=== PATIENT | male | born 1950 | race Caucasian/White ===

== ENCOUNTER 2021-12-21 09:29 | Outpatient (CLI) | payer MEDICARE, SELFPAY ==
[2021-12-21 09:59] LABS: Basophils Absolute Auto 0.1 K/mm3 (0.0-0.1); Basophils Percent Auto 1.5 % (0.2-1.2); Eosinophils Absolute Auto 0.4 K/mm3 (0-0.3); Eosinophils Percent Auto 5.9 % (0-4.4); Hematocrit 44.7 % (42.0-52.0); Hemoglobin 14.8 g/dL (14.0-18.0); Immature Granulocyte Absolute 0.02 K/mm3 (0.00-0.031); Immature Granulocyte Percent A 0.3 % (0-0.5); Lymphocytes Absolute Auto 1.26 K/mm3 (0.9-3.2); Lymphocytes Percent Auto 18.6 % (18.3-44.2); Mean Corpuscular HGB Conc 33.1 g/dl (32-36); Mean Corpuscular Volume 93.7 fl (80-100); Mean Platelet Volume 8.7 fl (7.4-10.4); Monocytes Absolute Auto 0.7 K/mm3 (0.1-0.6); Monocytes Percent Auto 9.7 % (2.6-8.5); Neutrophils Absolute Auto 4.3 K/mm3 (1.3-6.7); Platelet Count Result 284 k/mm3 (150-375); Red Blood Count 4.77 M/mm3 (4.6-6.20); Red Cell Distribution Width 13.2 % (11.5-14.5); White Blood Count 6.8 K/mm3 (4.5-10.0)
[2021-12-21 11:05] LABS: Iron 107 ug/dL (49-181)
[2021-12-21 11:27] LABS: Vitamin D 25 Hydroxy 84.8 ng/mL
[2021-12-21 13:31] LABS: Transferrin 220 mg/dL (206-381)
[2021-12-24 21:45] LABS: Methylmalonic Acid 146 nmol/L (87-318)
== END 2021-12-21 09:30 | disposition home or self-care (01) ==
PROVIDERS: PCP Nurse Practitioner Family
DX: D50.9 Iron deficiency anemia, unspecified (principal)
CPT/HCPCS: 36415; 82306; 82607; 82728; 83540; 83921; 84443; 84466; 85025

== ENCOUNTER 2022-11-12 09:38 | Outpatient (CLI) | payer MEDICARE, SELFPAY ==
[2022-11-12 10:40] LABS: Basophils Absolute Auto 0.1 K/mm3 (0.0-0.1); Basophils Percent Auto 2.5 % (0.2-1.2); Eosinophils Absolute Auto 0.4 K/mm3 (0-0.3); Eosinophils Percent Auto 8.1 % (0-4.4); Hematocrit 41.5 % (42.0-52.0); Hemoglobin 13.5 g/dL (14.0-18.0); Immature Granulocyte Absolute 0.02 K/mm3 (0.00-0.031); Immature Granulocyte Percent A 0.4 % (0-0.5); Lymphocytes Absolute Auto 1.24 K/mm3 (0.9-3.2); Lymphocytes Percent Auto 23.5 % (18.3-44.2); Mean Corpuscular HGB Conc 32.5 g/dl (32-36); Mean Corpuscular Hemoglobin 30.8 pg (26-34); Mean Corpuscular Volume 94.5 fl (80-100); Mean Platelet Volume 9.2 fl (7.4-10.4); Monocytes Absolute Auto 0.5 K/mm3 (0.1-0.6); Monocytes Percent Auto 10.2 % (2.6-8.5); Neutrophils Absolute Auto 2.9 K/mm3 (1.3-6.7); Neutrophils Percent Auto 55.3 % (45.5-73.1); Platelet Count Result 256 k/mm3 (150-375); Red Blood Count 4.39 M/mm3 (4.6-6.20); Red Cell Distribution Width 14.1 % (11.5-14.5); White Blood Count 5.3 K/mm3 (4.5-10.0)
[2022-11-12 10:50] LABS: Anion Gap 6 mmol/L (8-16); Blood Urea Nitrogen 15 mg/dL (9-20); Carbon Dioxide 27 mmol/L (22-30); Chloride 107 mmol/L (98-107); Estimated Glomerular Filt Rate > 60; Glucose 98 mg/dL (65-110); Potassium 4.1 mmol/L (3.4-5.0); Sodium 140 mmol/L (137-145)
[2022-11-12 10:52] LABS: Prothrombin Time 13.8 Seconds (11.1-14.7)
[2022-11-12 10:53] LABS: Partial Thromboplastin Time 31.4 SECONDS (22.3-36.8)
== END 2022-11-12 09:39 | disposition home or self-care (01) ==
PROVIDERS: PCP Nurse Practitioner Family; Visit Provider Urology
DX: N32.89 Other specified disorders of bladder (principal); Z01.818 Encounter for other preprocedural examination
CPT/HCPCS: 36415; 80048; 85025; 85610; 85730

== ENCOUNTER 2022-11-18 03:07 | Day surgery (SDC) | payer MEDICARE, SELFPAY ==
--- NOTE | 2022-11-07 09:53 | PC.NURSE ---
Report to the Outpatient Waiting Room, entrance under the green pavilion located off [facility], at time _1000 on date __11/18/22 . Planned Procedure Time: _1200 . Time changes happen often and if your time is changed the preop area will call you the afternoon before. - You and your visitor will be asked to self-screen and do not enter if you have any COVID symptoms. - A mask is optional within the hospital at this time. Patients may have clear liquids (water, carbonated beverages, clear teas, apple juice) until 3 hours prior to surgery with a maximum of 20 ounces. - No food from midnight until time of surgery - Infants may have breast milk until 4 hours before surgery, infant formula 6 hours prior to surgery. - Children will be allowed to drink immediately following surgery. If applicable, please bring a bottle or sippy cup to assist with drinking. Juice, water, soda, and popsicles are readily available. For infants on formula, please bring formula the day of surgery. Pacifiers are allowed. Take the following medications with a SIP of water the morning of surgery: ____NONE DO NOT STOP ANY OF YOUR OTHER PRESCRIPTION MEDICATIONS PRIOR TO SURGERY ?EXCEPT THE FOLLOWING Medications to discontinue per physician __ALL VITAMINS/SUPPLEMENTS 3 DAYS PRE OP .LAST DOSE11/14/22, PT TO CALL DR CHACON REGARDING ASPIRIN . PT STATES HOLD_ELIQUIS 4 DAYS PRE OP AND BRIDGE WITH LOVENOX PER DR BRANCH/INES Please no make-up, nail surinamese, hairspray, perfume, deodorant, or body powder the day of surgery. No jewelry (including any body piercings) or valuables the day of surgery, leave them at home. Please take a shower or bath the night before, or the morning of, surgery with an antibacterial soap. Wear comfortable, loose fitting clothing. Children are encouraged to wear pajamas. - Jewelry must be removed prior to entering the operating room. Rings and piercings that are not removed may be cut off. - The hospital will not accept responsibility for valuables. - Please leave all valuables, including medications, at home the day of surgery. If you are going home after surgery, a licensed class c truck driver must drive you home. - NO public transportation without another adult if you receive anesthesia. - We recommend that an adult stay with you for 24 hours following discharge. - We also recommend that you do not drive, make important decision, drink alcoholic beverages, or take any drugs that were not prescribed by your health care provider for at least 24 hours after your discharge time. Follow any additional instructions given to you from your surgeon. If you or anyone in your household have experienced Covid symptoms in the past week, please notify your surgeon or the nurse liaison at the phone number below for possible testing. Telephone instructions given to ___PATIENT and asked if any additional questions and then verbalized understanding. Patient advised to call surgeon office or pre surgery nurse liaison [phone] if any additional questions.
[2022-11-07 10:16] VITALS: BMI 30.4
[2022-11-18] VITALS (9 sets, daily range): BP systolic 120–144; BP diastolic 76–90; PULSE 48–76; RESP 12–20; TEMP 36.7–36.8; O2SAT 98–100
--- NOTE | 2022-11-18 07:47 | WPDANESEPPF ---
Anes - Initial Pre Proc Eval Procedure: Operation Date: 11/18/22 10:00 Proposed Procedures p Trans Urethral Resection Bladder Tumor, Possible Right Ureteral Stent Placement - Albin Erickson MD Date/Time: 11/18/22 07:47 Surgeon: Albin Erickson MD Pre Op Diagnosis: gross hematuria, bladder mass Patient Data Age: 72 Gender: M Height: 1.73 m Weight: 90.75 kg Allergies Allergy/AdvReac Type Severity Reaction Status Date / Time atorvastatin AdvReac Joint Pain Verified 11/07/22 09:45 Home Medications Medication Instructions Recorded Confirmed Type apixaban 5 mg tablet (Eliquis) 5 mg PO BID 11/05/22 11/07/22 History multivitamin 1 tablet PO DAILY 11/05/22 11/07/22 History omega-3 360 pb-plu-pvg-fish oil 1 cap PO DAILY 11/05/22 11/07/22 History 1,200 mg capsule,delayed release trazodone 50 mg tablet 50 mg PO QHS PRN Insomnia 11/05/22 11/07/22 History albuterol sulfate 90 mcg/actuation 2 puff inhalation PRN PRN 11/07/22 11/07/22 History aerosol inhaler Shortness Of Breath aspirin 81 mg tablet,delayed 81 mg PO DAILY 11/07/22 11/07/22 History release (Adult Low Dose Aspirin) cetirizine 10 mg tablet 10 mg PO DAILY 11/07/22 11/07/22 History tamsulosin 0.4 mg capsule 0.4 mg PO DAILY 11/07/22 11/07/22 History Patient hx anesthesia problems: none Family hx anesthesia problems: none Results Review: All pre-operative results and documents have been reviewed as part of the pre-operative evaluation. [facility] Past Medical History Medical History (Updated 11/18/22 @ 07:50 by Mateus Benavides MD) Blood clots in biliary tract following procedure Obesity KWESI on CPAP Pulmonary embolism Family History Family History (Updated 11/05/22 @ 08:35 by Esme Berumen CMA) Father Heart disease Cerebrovascular accident Mother Heart disease Sibling Hypertension Grandparent Cancer Grandparent Cancer Diabetes mellitus Social History Social History (Updated 11/05/22 @ 08:36 by Esme Berumen CMA) Smoking packs per day: 1 Smoking cigarettes per day: 20.0 Years smoked: 20 Smoking pack-years: 20.00 Smoking status: Former smoker Tobacco type: cigarettes Smoking end date: 05/11/99 Alcohol intake: current Drinks per week: 2 Lack of Transportation: No Lack of Food: Never True Current Housing: I Have Housing Concerned About Future Housing: No Difficulty Paying Gas/Electric Bills: No Difficulty Paying for Meds: No Currently Unemployed: No Education: High School Diploma/GED Difficulty w/ Childcare or Family Care: No Living arrangements: with family Spiritual care concerns: No Anes - Eval Final PreProcedure Day of Procedure 11/18/22 07:47 Patient weight: obese Heart: regular rate and rhythm Lungs: clear to auscultation and normal air movement Airway: Mallampati scale class II Neurological: alert and oriented Last oral intake: >/= 8 hours ASA classification: III Emergent: no Anesthetic plan: proceed Anesthesia type and monitoring: general LMA Results Review: All pre-operative results and documents have been reviewed as part of the pre-operative evaluation. Informed Consent: The patient's anesthetic plan and its attendant risks and benefits were discussed with the patient/family/POA. Questions were solicited and answers provided to the satisfaction of the patient/family/POA.
[2022-11-18] MEDS: LACTATED RINGERS 1,000 ML 30 ML IV CONT ×2 (08:30→11:08)
--- NOTE | 2022-11-18 09:35 | WPDHPUPDATE1 ---
History and Physical Update Update Date/Time: 11/18/22 09:35 History and Physical has been reviewed, including an updated exam of the patient. There are NO changes in the patient's condition. Risks, benefits, and alternatives have been discussed and questions answered. Patient agrees to proceed with procedure. Proceed with transurethral resection of bladder tumor
--- NOTE | 2022-11-18 09:44 | WPDHPUPDATE1 ---
History and Physical Update Update Date/Time: 11/18/22 09:44 History and Physical has been reviewed, including an updated exam of the patient. There are NO changes in the patient's condition. Risks, benefits, and alternatives have been discussed and questions answered. Patient agrees to proceed with procedure. Proceed with turbt, possible right retrograde, right ureteral stent placement.
[2022-11-18] MEDS: ceFAZolin 2 GM/D5W 50 ML 2 GM/50 ML BAG IVPB (09:52)
--- NOTE | 2022-11-18 10:28 | W.PM.PROC2 ---
Procedure Note - Detailed Date of Procedure 11/18/22 Pre-op Diagnosis gross hematuria, bladder mass Post-op Diagnosis Same Procedure Performed Transurethral resection of bladder tumor medium size 3 cm Surgeon Albin Erickson MD Anesthesia General Description of Procedure Patient is taken to the operative suite correctly identified. Once anesthesia was obtained was placed in dorsal lithotomy position and prepped and draped usual sterile fashion. A 24 Australian scope was inserted the bladder. The tumors located just lateral to the right ureteral orifice. Measures approximately 3 cm. Using a 24 Australian resectoscope loop this was resected down to the base. The base was taken and sent as a separate specimen. Hemostasis was achieved using electrocautery. No other tumors were noted. Bladder tumor chips were then sent for pathologic review. 2% viscous lidocaine was inserted into the urethra. Eighteen Australian Mena was placed with 10 cc in the balloon. Patient is taken recovery stable condition. We discharged home with a Mena catheter and have it removed in 2 days. He will resume his anticoagulants this evening. This completes dictation. Please send a copy of op note to my office Estimated Blood Loss 10 Drains Yes Packing No Pathology Yes Complications No immediate complications Condition Stable Disposition PACU
== END 2022-11-18 12:50 | disposition home or self-care (01) ==
PROVIDERS: PCP Nurse Practitioner Family; Visit Provider Urology
PROC: 0TBB8ZZ Excision of Bladder, Via Natural or Artificial Opening Endoscopic (ICD-10-PCS; CPT 52235; principal; 2022-11-18 10:00)
DX: C67.8 Malignant neoplasm of overlapping sites of bladder (principal); G47.33 Obstructive sleep apnea (adult) (pediatric); Z86.711 Personal history of pulmonary embolism; Z86.718 Personal history of other venous thrombosis and embolism; E66.9 Obesity, unspecified; Z68.31 Body mass index [BMI] 31.0-31.9, adult; Z87.891 Personal history of nicotine dependence; Z79.01 Long term (current) use of anticoagulants; Z79.51 Long term (current) use of inhaled steroids; Z79.82 Long term (current) use of aspirin
CPT/HCPCS: 52235; 36415; 80048; 85025; 85610; 85730; 88305; J0690; J2001; J2250; J2704; J3010; J7120

== ENCOUNTER 2023-09-04 11:52 | Outpatient (CLI) | payer MEDICARE, SELFPAY ==
--- NOTE | 2023-09-04 14:02 | ECG_ITS ---
SEE SCANNED COPY FOR CONFIRMED REPORT MTDD
[2023-09-04 14:44] LABS: Basophils Absolute Auto 0.1 K/mm3 (0.0-0.1); Basophils Percent Auto 1.5 % (0.2-1.2); Eosinophils Absolute Auto 0.3 K/mm3 (0-0.3); Eosinophils Percent Auto 5.4 % (0-4.4); Immature Granulocyte Absolute 0.02 K/mm3 (0.00-0.031); Immature Granulocyte Percent A 0.3 % (0-0.5); Lymphocytes Absolute Auto 1.26 K/mm3 (0.9-3.2); Lymphocytes Percent Auto 20.6 % (18.3-44.2); Mean Corpuscular HGB Conc 33.3 g/dl (32-36); Mean Corpuscular Hemoglobin 31.4 pg (26-34); Mean Corpuscular Volume 94.3 fl (80-100); Mean Platelet Volume 9.1 fl (7.4-10.4); Monocytes Absolute Auto 0.7 K/mm3 (0.1-0.6); Monocytes Percent Auto 10.9 % (2.6-8.5); Neutrophils Absolute Auto 3.8 K/mm3 (1.3-6.7); Neutrophils Percent Auto 61.3 % (45.5-73.1); Platelet Count Result 248 k/mm3 (150-375); Red Blood Count 4.77 M/mm3 (4.6-6.20); Red Cell Distribution Width 12.7 % (11.5-14.5); White Blood Count 6.1 K/mm3 (4.5-10.0)
[2023-09-04 14:59] LABS: Anion Gap 4 mmol/L (4-12); Blood Urea Nitrogen 16 mg/dL (9-20); Calcium 9.4 mg/dL (8.4-10.2); Carbon Dioxide 29 mmol/L (22-30); Chloride 107 mmol/L (98-107); Estimated Glomerular Filt Rate > 60; Glucose 94 mg/dL (65-110); Potassium 3.8 mmol/L (3.4-5.0); Prothrombin Time 13.9 Seconds (11.1-14.7); Sodium 140 mmol/L (137-145)
[2023-09-04 15:00] LABS: Partial Thromboplastin Time 29.2 Seconds (22.3-36.8)
== END 2023-09-04 11:53 | disposition home or self-care (01) ==
PROVIDERS: PCP Family Medicine; Visit Provider Urology
DX: C67.9 Malignant neoplasm of bladder, unspecified (principal); E78.00 Pure hypercholesterolemia, unspecified; Z01.818 Encounter for other preprocedural examination
CPT/HCPCS: 36415; 80048; 85025; 85610; 85730; 87086; 93005

== ENCOUNTER 2023-09-08 00:37 | Day surgery (SDC) | payer MEDICARE, SELFPAY ==
[2023-09-04 11:22] VITALS: BMI 31.2
--- NOTE | 2023-09-04 11:51 | PC.NURSE ---
Report to the Outpatient Waiting Room, entrance under the green pavilion located off [facility], at time __7:00AM on date ___09/08/23____. Planned Procedure Time: __9:00AM . Time changes happen often and if your time is changed the preop area will call you the afternoon before. - You and your visitor will be asked to self-screen and do not enter if you have any COVID symptoms. - A mask is optional within the hospital at this time. Patients may have clear liquids (water, carbonated beverages, clear teas, apple juice) until 3 hours prior to surgery with a maximum of 20 ounces. - No food from midnight until time of surgery. Take the following medications with a SIP of water the morning of surgery: ____ALBUTEROL INHALER NEEDED DO NOT STOP ANY OF YOUR OTHER PRESCRIPTION MEDICATIONS PRIOR TO SURGERY ?EXCEPT THE FOLLOWING Medications to discontinue per physician ___HOLD ELIQUIS 3 DAYS PRE-OP PER DR CHACON- LAST DOSE 09/04/23. HOLD ASPIRIN AND VITAMINS/SUPPLEMENTS 7 DAYS PRE-OP PER DR CHACON-PATIENT JUST RECEIVED THIS INSTRUCTION ON 09/03/23. HE IS CURRENTLY HOLDING, LAST DOSE 09/03/23. OFFICE NOTIFIED. Please no make-up, nail slovenian, hairspray, perfume, deodorant, or body powder the day of surgery. No jewelry (including any body piercings) or valuables the day of surgery, leave them at home. Please take a shower or bath the night before, or the morning of, surgery with an antibacterial soap. Wear comfortable, loose fitting clothing. - Jewelry must be removed prior to entering the operating room. Rings and piercings that are not removed may be cut off. - The hospital will not accept responsibility for valuables. - Please leave all valuables, including medications, at home the day of surgery. If you are going home after surgery, a licensed driver's license examiner must drive you home. - NO public transportation without another adult if you receive anesthesia. - We recommend that an adult stay with you for 24 hours following discharge. - We also recommend that you do not drive, make important decision, drink alcoholic beverages, or take any drugs that were not prescribed by your health care provider for at least 24 hours after your discharge time. Follow any additional instructions given to you from your surgeon. If you or anyone in your household have experienced Covid symptoms in the past week, please notify your surgeon or the nurse liaison at the phone number below for possible testing. Telephone instructions given to ____PATIENT and asked if any additional questions and then verbalized understanding. Patient advised to call surgeon office or pre surgery nurse liaison [phone] if any additional questions.
[2023-09-08] VITALS (8 sets, daily range): BP systolic 92–124; BP diastolic 62–88; PULSE 44–60; RESP 16; TEMP 36.3–36.6; O2SAT 96–100
--- NOTE | 2023-09-08 07:04 | WPDHPUPDATE1 ---
History and Physical Update Update Date/Time: 09/08/23 07:04 History and Physical has been reviewed, including an updated exam of the patient. There are NO changes in the patient's condition. Risks, benefits, and alternatives have been discussed and questions answered. Patient agrees to proceed with procedure. Proceed with turbt
--- NOTE | 2023-09-08 08:19 | WPDANESEPPF ---
Anes - Initial Pre Proc Eval Procedure: Operation Date: 09/08/23 09:00 Proposed Procedures p Trans Urethral Resection Bladder Tumor - Albin Erickson MD Date/Time: 09/08/23 08:19 Surgeon: Albin Erickson MD Pre Op Diagnosis: Bladder Cancer Patient Data Age: 73 Gender: M Height: 1.75 m Weight: 96 kg Allergies Allergy/AdvReac Type Severity Reaction Status Date / Time atorvastatin AdvReac Joint Pain Verified 09/08/23 08:20 Home Medications Medication Instructions Recorded Confirmed Type apixaban 5 mg tablet (Eliquis) 5 mg PO BID 11/05/22 09/08/23 History multivitamin 1 tablet PO DAILY 11/05/22 09/08/23 History omega-3 360 pw-dms-mzs-fish oil 1 cap PO DAILY 11/05/22 09/08/23 History 1,200 mg capsule,delayed release trazodone 50 mg tablet 50 mg PO QHS PRN Insomnia 11/05/22 09/08/23 History albuterol sulfate 90 mcg/actuation 2 puff inhalation PRN PRN 11/07/22 09/08/23 History aerosol inhaler Shortness Of Breath aspirin 81 mg tablet,delayed 81 mg PO DAILY 11/07/22 09/08/23 History release (Adult Low Dose Aspirin) cetirizine 10 mg tablet 10 mg PO DAILY 11/07/22 09/08/23 History tamsulosin 0.4 mg capsule 0.4 mg PO DAILY 11/07/22 09/08/23 History rosuvastatin 5 mg tablet 5 mg PO DAILY 09/04/23 09/08/23 History Patient hx anesthesia problems: none Family hx anesthesia problems: none Results Review: All pre-operative results and documents have been reviewed as part of the pre-operative evaluation. [facility] Past Medical History Medical History (Updated 09/08/23 @ 08:21 by Aureliano Bonilla DO) Blood clots in biliary tract following procedure DVT (deep venous thrombosis) Hiatal hernia Hyperlipidemia Obesity KWESI on CPAP Pulmonary embolism 08/2022 Family History Family History (Updated 11/05/22 @ 08:35 by Esme Berumen CMA) Father Heart disease Cerebrovascular accident Mother Heart disease Sibling Hypertension Grandparent Cancer Grandparent Cancer Diabetes mellitus Social History Social History (Updated 11/05/22 @ 08:36 by Esme Berumen [facility]) Smoking packs per day: 1 Smoking cigarettes per day: 20.0 Years smoked: 25 Smoking pack-years: 25.00 Smoking status: Former smoker Tobacco type: cigarettes Smoking end date: 11/09/99 Alcohol intake: current Drinks per week: 12 Lack of Transportation: No Lack of Food: Never True Current Housing: I Have Housing Concerned About Future Housing: No Difficulty Paying Gas/Electric Bills: No Difficulty Paying for Meds: No Currently Unemployed: No Education: High School Diploma/GED Difficulty w/ Childcare or Family Care: No Living arrangements: with family Additional living arrangements comments: Spiritual care concerns: No Anes - Eval Final PreProcedure Day of Procedure 09/08/23 08:19 Patient weight: obese Heart: regular rate and rhythm Lungs: clear to auscultation Airway: Mallampati scale class II Neurological: alert and oriented Last oral intake: >/= 8 hours ASA classification: III Emergent: no Anesthetic plan: proceed Anesthesia type and monitoring: general LMA and standard monitoring Results Review: All pre-operative results and documents have been reviewed as part of the pre-operative evaluation. Informed Consent: The patient's anesthetic plan and its attendant risks and benefits were discussed with the patient/family/POA. Questions were solicited and answers provided to the satisfaction of the patient/family/POA.
[2023-09-08] MEDS: ceFAZolin 2 GM/D5W 50 ML 2 GM/50 ML BAG IVPB (08:32)
[2023-09-08] MEDS: LIDOCAINE HCL 2% GEL UROJET 10 ML PKG MUCOUS MEM (08:49)
--- NOTE | 2023-09-08 08:59 | W.PM.PROC2 ---
Procedure Note - Detailed Date of Procedure 09/08/23 Pre-op Diagnosis Bladder Cancer Post-op Diagnosis Same Procedure Performed Transurethral resection of medium bladder tumor 2 cm Surgeon Albin Erickson MD Anesthesia General Description of Procedure The patient was brought to the operative suite where he is prepped and draped in a routine sterile fashion while in the dorsal lithotomy position. This is done after the uneventful administration of systemic sedation. A 24F resectoscope sheath was placed in the bladder and the bladder is circumferentially inspected carefully. 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 This area is resected in its entirety with an attempt made to include detrusor muscle for pathological evaluation of invasion. The base and periphery of this resected side is cauterized with a loop electrode. The bladder is emptied and the resectoscope was removed. His prostate was oozing at the bladder neck from the median lobe. I also fulgurated this area. 2% viscous lidocaine was inserted into the urethra. The patient is taken to the recovery room having tolerated this procedure well. Estimated Blood Loss 0 Drains No Packing No Pathology Yes Complications No immediate complications Condition Stable Disposition PACU
[2023-09-08] MEDS: LACTATED RINGERS 1,000 ML 30 ML IV CONT (09:02)
== END 2023-09-08 10:26 | disposition home or self-care (01) ==
PROVIDERS: PCP Family Medicine; Visit Provider Urology
PROC: 0TBB8ZZ Excision of Bladder, Via Natural or Artificial Opening Endoscopic (ICD-10-PCS; CPT 52235; principal; 2023-09-08 09:00)
DX: C67.3 Malignant neoplasm of anterior wall of bladder (principal); E78.5 Hyperlipidemia, unspecified; G47.33 Obstructive sleep apnea (adult) (pediatric); Z86.718 Personal history of other venous thrombosis and embolism; Z86.711 Personal history of pulmonary embolism; E66.9 Obesity, unspecified; Z68.30 Body mass index [BMI] 30.0-30.9, adult; Z87.891 Personal history of nicotine dependence; Z79.51 Long term (current) use of inhaled steroids; Z79.82 Long term (current) use of aspirin; Z79.01 Long term (current) use of anticoagulants
CPT/HCPCS: 52235; 36415; 80048; 85025; 85610; 85730; 87086; 88305; 93005; J0690; J1100; J2405; J2704; J7120

== ENCOUNTER 2023-12-22 02:23 | Day surgery (SDC) | payer MEDICARE, SELFPAY ==
[2023-12-17 12:54] VITALS: BMI 30.2
--- NOTE | 2023-12-17 13:17 | PC.NURSE ---
Report to the Outpatient Waiting Room, entrance under the green pavilion located off [facility], at time __8:45AM on date __12/22/23 . Planned Procedure Time: ___10:45AM . Time changes happen often and if your time is changed the preop area will call you the afternoon before. - You and your visitor will be asked to self-screen and do not enter if you have any COVID symptoms. - A mask is optional within the hospital at this time. Patients may have clear liquids (water, carbonated beverages, clear teas, apple juice) until 3 hours prior to surgery with a maximum of 20 ounces. - No food from midnight until time of surgery. Take the following medications with a SIP of water the morning of surgery: ____ALBUTEROL INHALER NEEDED. TAKE HYDROCODONE OR TRAMADOL NEEDED FOR PAIN. DO NOT STOP ANY OF YOUR OTHER PRESCRIPTION MEDICATIONS PRIOR TO SURGERY ?EXCEPT THE FOLLOWING Medications to discontinue per physician ____HOLD ELIQUIS, ASPIRIN & VITAMINS/SUPPLEMENTS PER DR CHACON. LEFT MESSAGE W/ OFFICE TO CONFIRM. Please no make-up, nail bruneian, hairspray, perfume, deodorant, or body powder the day of surgery. No jewelry (including any body piercings) or valuables the day of surgery, leave them at home. Please take a shower or bath the night before, or the morning of, surgery with an antibacterial soap. Wear comfortable, loose fitting clothing. - Jewelry must be removed prior to entering the operating room. Rings and piercings that are not removed may be cut off. - The hospital will not accept responsibility for valuables. - Please leave all valuables, including medications, at home the day of surgery. If you are going home after surgery, a licensed flatbed driver must drive you home. - NO public transportation without another adult if you receive anesthesia. - We recommend that an adult stay with you for 24 hours following discharge. - We also recommend that you do not drive, make important decision, drink alcoholic beverages, or take any drugs that were not prescribed by your health care provider for at least 24 hours after your discharge time. Follow any additional instructions given to you from your surgeon. If you or anyone in your household have experienced Covid symptoms in the past week, please notify your surgeon or the nurse liaison at the phone number below for possible testing. Telephone instructions given to ___PATIENT and asked if any additional questions and then verbalized understanding. Patient advised to call surgeon office or pre surgery nurse liaison [phone] if any additional questions.
[2023-12-22] VITALS (11 sets, daily range): BP systolic 91–184; BP diastolic 47–103; PULSE 46–84; RESP 12–18; TEMP 36.1–36.7; O2SAT 96–100
[2023-12-22] MEDS: LACTATED RINGERS 1,000 ML 30 ML IV CONT (06:30)
--- NOTE | 2023-12-22 07:10 | WPDANESEPPF ---
Anes - Initial Pre Proc Eval Procedure: Operation Date: 12/22/23 07:30 Proposed Procedures p Cystoscopy, Bladder Biopsy with Fulguration - Albin Erickson MD Date/Time: 12/22/23 07:10 Surgeon: Albin Erickson MD Pre Op Diagnosis: bladder cancer Patient Data Age: 73 Gender: M Height: 1.75 m Weight: 93 kg Allergies Allergy/AdvReac Type Severity Reaction Status Date / Time atorvastatin AdvReac Joint Pain Verified 12/17/23 12:43 Home Medications Medication Instructions Recorded Confirmed Type apixaban 5 mg tablet (Eliquis) 5 mg PO BID 11/05/22 12/17/23 History multivitamin 1 tablet PO DAILY 11/05/22 12/17/23 History omega-3 360 du-nny-vhg-fish oil 1 cap PO DAILY 11/05/22 12/17/23 History 1,200 mg capsule,delayed release trazodone 50 mg tablet 50 mg PO QHS PRN Insomnia 11/05/22 12/17/23 History albuterol sulfate 90 mcg/actuation 2 puff inhalation PRN PRN 11/07/22 12/17/23 History aerosol inhaler Shortness Of Breath aspirin 81 mg tablet,delayed 81 mg PO DAILY 11/07/22 12/17/23 History release (Adult Low Dose Aspirin) cetirizine 10 mg tablet 10 mg PO DAILY 11/07/22 12/17/23 History tamsulosin 0.4 mg capsule 0.4 mg PO DAILY 11/07/22 12/17/23 History rosuvastatin 5 mg tablet 5 mg PO DAILY 09/04/23 12/17/23 History tramadol 50 mg tablet 50 mg PO Q6H PRN pain #20 tabs 09/08/23 12/17/23 Rx cyclobenzaprine 10 mg tablet 10 mg PO TID PRN Muscle Spasm 12/17/23 12/17/23 History hydrocodone 5 mg-acetaminophen 325 1 tablet PO Q4-6H PRN Pain 12/17/23 12/17/23 History mg tablet methylprednisolone 4 mg tablets in See Rx Instructions .Route .COMPLEX 12/17/23 12/17/23 History a dose pack Patient hx anesthesia problems: none Family hx anesthesia problems: none Results Review: All pre-operative results and documents have been reviewed as part of the pre-operative evaluation. [facility] Past Medical History Medical History Blood clots in biliary tract following procedure DVT (deep venous thrombosis) Hiatal hernia Hyperlipidemia Obesity KWESI on CPAP Pulmonary embolism 08/2022 Family History Family History Father Heart disease Cerebrovascular accident Mother Heart disease Sibling Hypertension Grandparent Cancer Grandparent Cancer Diabetes mellitus Social History Social History Smoking packs per day: 1 Smoking cigarettes per day: 20.0 Years smoked: 35 Smoking pack-years: 35.00 Smoking status: Former smoker Tobacco type: cigarettes Smoking end date: 11/09/99 Alcohol intake: current Drinks per week: 12 Lack of Transportation: No Lack of Food: Never True Current Housing: I Have Housing Concerned About Future Housing: No Difficulty Paying Gas/Electric Bills: No Difficulty Paying for Meds: No Currently Unemployed: No Education: High School Diploma/GED Difficulty w/ Childcare or Family Care: No Living arrangements: with family Additional living arrangements comments: Spiritual care concerns: No Anes - Eval Final PreProcedure Day of Procedure 12/22/23 07:10 Patient weight: overweight Heart: regular rate and rhythm Lungs: clear to auscultation Airway: Mallampati scale class II Neurological: alert and oriented Last oral intake: >/= 8 hours ASA classification: III Emergent: no Anesthetic plan: proceed Anesthesia type and monitoring: general GIVS and standard monitoring Results Review: All pre-operative results and documents have been reviewed as part of the pre-operative evaluation. Hx of DVT/PE, pt on eliquis, off for 3-4 days, KWESI, noncompliant w CPAP. Informed Consent: The patient's anesthetic plan and its attendant risks and benefits were discussed with the patient/family/POA. Questions were solicited and answers provided to the satisfaction
--- NOTE | 2023-12-22 07:29 | WPDHPUPDATE1 ---
History and Physical Update Update Date/Time: 12/22/23 07:29 History and Physical has been reviewed, including an updated exam of the patient. There are NO changes in the patient's condition. Risks, benefits, and alternatives have been discussed and questions answered. Patient agrees to proceed with procedure. Proceed with cysto, bladder biopsy with fulguration
[2023-12-22] MEDS: ceFAZolin 2 GM/D5W 50 ML 2 GM/50 ML BAG IVPB (07:37)
[2023-12-22] MEDS: LIDOCAINE HCL 2% GEL UROJET 10 ML PKG MUCOUS MEM (07:55)
--- NOTE | 2023-12-22 08:00 | W.PM.PROC2 ---
Procedure Note - Detailed Date of Procedure 12/22/23 Pre-op Diagnosis bladder cancer Post-op Diagnosis Same Procedure Performed Cystoscopy with bladder biopsy and fulguration Surgeon Albin Erickson MD Anesthesia General Description of Procedure Patient was taken the operative suite correctly identified. Once anesthesia was obtained was placed in dorsal lithotomy position and prepped and draped usual sterile fashion. Twenty-two Wallisian scope was inserted the bladder. There were no urethral strictures. Prostate was not overly obstructed. The bladder itself has some irregularity on the floor. There was also a small lesion measuring about 8-9 mm on the posterior wall. These were both biopsied using a cold cup biopsy. The base was fulgurated. There was good hemostasis. Bladder was drained. 2% viscous lidocaine was inserted into the urethra patient is taken recovery stable condition. He will follow up with a call in 1 week for results. This completes dictation. Please send a copy of op note to my office. Estimated Blood Loss 0 Drains No Packing No Pathology Yes Complications No immediate complications Condition Stable Disposition PACU
[2023-12-22] MEDS: oxyCODONE HCL (*CRX) 5 MG TAB IR PO (08:52)
--- NOTE | 2023-12-22 09:29 | SUR.PHASEII ---
0930: PATIENT C/o severe 10/10 back pain. His spouse,Octavia, states patient has had ongoing back pain with x2 er visits in the last few weeks. Patient states he almost fell this morning and his back pain is so severe that he wants to go to the ED. Angelica TO, PACU manage,r notified. Angelica TO spoke to ED nurse, Sherie TO who stated his peripheral IV may remain intact after discharge if a RN remains with him in the ED until Triage can see patient for a new visit. This RN Will DC patient and transfer via w/c to ED. Patient hypertensive, Anesthesia MD made aware. New orders for medication received to give prior to discharge.
[2023-12-22] MEDS: diazePAM INJ (*CRX) 10 MG/2 ML SYRINGE 2 MG IV PUSH ×2 (09:41→09:51)
--- NOTE | 2023-12-22 11:19 | SUR.PHASEII ---
0945: Dr. Erickson made aware of patient to go to ED after dc.
== END 2023-12-22 09:53 | disposition home or self-care (01) ==
PROVIDERS: PCP Nurse Practitioner Family; Visit Provider Urology
PROC: 0TBB8ZX Excision of Bladder, Via Natural or Artificial Opening Endoscopic, Diagnostic (ICD-10-PCS; CPT 52204; principal; 2023-12-22 07:30)
DX: C67.4 Malignant neoplasm of posterior wall of bladder (principal); E78.5 Hyperlipidemia, unspecified; G47.33 Obstructive sleep apnea (adult) (pediatric); Z86.711 Personal history of pulmonary embolism; Z87.891 Personal history of nicotine dependence; Z79.01 Long term (current) use of anticoagulants; Z79.51 Long term (current) use of inhaled steroids; Z79.82 Long term (current) use of aspirin; Z79.891 Long term (current) use of opiate analgesic
CPT/HCPCS: 52204; 72131; 81001; 88305; 96372; 99284; A9270; J0690; J1100; J1170; J2405; J2704; J3010; J3360; J7120

== ENCOUNTER 2023-12-22 10:02 | Emergency (ER) | payer MEDICARE, SELFPAY ==
--- NOTE | ~2023-12-22 | CT_ITS ---
EXAMINATION: CT lumbar spine wo con DATE: 12/22/2023 12:08 INDICATION: Low back pain. TECHNIQUE: Computed tomography (CT) of the lumbar spine was performed without intravenous contrast. A utomated exposure control and iterative reconstruction technique were employed. The dose-length produ ct was 1032.04 mGy-cm. COMPARISON: None FINDINGS: There is 6 degrees dextrocurvature of lumbar spine. There is mild chronic anterior wedging of T11-L2 vertebral bodies. There is mildly decreased disc height at T12-L1 and L1-L2 and severely de creased disc height at L2-L3 and L3-L4. There is severely decreased disc height at L4-L5 and L5-S1 wi th interbody fusion. The following disc levels are specifically discussed: L1-L2: The disc is bulging. There is moderate bilateral facet joint osteoarthritis. There is mild lef t neural foraminal stenosis. There is no central canal stenosis. L2-L3: The disc is bulging. There is severe bilateral facet joint osteoarthritis. There is mild right and moderate left neural foraminal stenosis. There is mild central canal stenosis. L3-L4: The disc is bulging. There is severe right and moderate left facet joint osteoarthritis. There is moderate right and mild left neural foraminal stenosis. There is mild central canal stenosis. L4-L5: There is severe bilateral facet joint osteoarthritis. There is mild bilateral neural foraminal stenosis. There is mild central canal stenosis. L5-S1: The disc is bulging. There is severe bilateral facet joint osteoarthritis. There is mild bilat eral neural foraminal stenosis. There is mild central canal stenosis. IMPRESSION: 1. Severe lumbar spondylosis. Reviewed, dictated and finalized at location A.
[2023-12-22 10:08] VITALS: BP 139/76; PULSE 49; RESP 17; TEMP 36.1; O2SAT 95
[2023-12-22 10:40] LABS: Add Urine Microscopic? YES; Appearance Urine Clear (Clear); Bacteria Urine None Seen /hpf; Bilirubin Urine Negative (Negative); Blood Urine 1+ (Negative); Color Urine Yellow (Yellow); Glucose Urine UA Negative (Negative); Ketones Urine Negative (Negative); Leukocyte Esterase Ur Negative LEU/UL (Negative); Nitrate Urine Negative (Negative); Non Pathogenic Casts 0-2; Protein Urine Negative (Negative); RBC Urine 0-2 /hpf (0-2); Specific Grav Ur 1.005 (1.001-1.035); Squamous Epithelial Cell Urine None Seen /hpf (Few); Urobilinogen Urine 0.2 mg/dL (<2.0); WBC Urine 0-5 /hpf (0-3)
--- NOTE | 2023-12-22 11:19 | ED.BACK ---
HPI - Back Pain/Injury General Chief Complaint: Back Pain/Injury Stated Complaint: from OR with back pain Time Seen by Provider: 12/22/23 10:57 Source: patient and family Mode of arrival: ambulatory Limitations: no limitations History of Present Illness HPI Narrative: 73 YEARS OLD WHITE MALE CAME TO THE ED BY PRIVATE CAR WITH HIS BECAUSE OF LOWER BACK PAIN. PATIENT REPORT LOWER BACK PAIN STARTED 2 AND HALF WEEKS AGO, HAS BEEN TO [facility], [facility], [facility] 5 DAYS AGO, WITH IMPROVEMENT. TODAY PATIENT GOT UP TRIPPED, DID NOT FALL, JERKED HIS LOWER BACK, CAUSING HIM TO HAVE BACK PAIN AGAIN. PATIENT WAS SCHEDULED FOR BLADDER SURGERY THIS MORNING, AFTER THE SURGERY, REFERRED TO THE EMERGENCY ROOM FOR LOWER BACK EVALUATION. PATIENT DENIES CAUDA EQUINA PATIENT DENIES BOWEL DYSFUNCTION, BLADDER DYSFUNCTION, ALTERED SENSATION, FOCAL WEAKNESS, OR SADDLE NUMBNESS,, LOWER BACK PAIN ACROSS LUMBAR AREA, SPASM, STABBING, NO RADIATION, NO FOCAL NEURO DEFICIT, WORSE WITH CERTAIN MOVEMENT AND POSITION, BETTER LYING DOWN WITHOUT MOVEMENT. Related Data Home Medications Medication Instructions Recorded Confirmed apixaban 5 mg tablet (Eliquis) 5 mg PO BID 11/05/22 12/22/23 multivitamin 1 tablet PO DAILY 11/05/22 12/22/23 omega-3 360 dp-kjc-pve-fish oil 1 cap PO DAILY 11/05/22 12/22/23 1,200 mg capsule,delayed release trazodone 50 mg tablet 50 mg PO QHS PRN Insomnia 11/05/22 12/22/23 albuterol sulfate 90 mcg/actuation 2 puff inhalation PRN PRN 11/07/22 12/17/23 aerosol inhaler Shortness Of Breath aspirin 81 mg tablet,delayed 81 mg PO DAILY 11/07/22 12/22/23 release (Adult Low Dose Aspirin) cetirizine 10 mg tablet 10 mg PO DAILY 11/07/22 12/22/23 tamsulosin 0.4 mg capsule 0.4 mg PO DAILY 11/07/22 12/22/23 rosuvastatin 5 mg tablet 5 mg PO DAILY 09/04/23 12/22/23 cyclobenzaprine 10 mg tablet 10 mg PO TID PRN Muscle Spasm 12/17/23 12/22/23 hydrocodone 5 mg-acetaminophen 325 1 tablet PO Q4-6H PRN Pain 12/17/23 12/17/23 mg tablet methylprednisolone 4 mg tablets in See Rx Instructions .Route .COMPLEX 12/17/23 12/17/23 a dose pack Allergies Allergy/AdvReac Type Severity Reaction Status Date / Time atorvastatin AdvReac Joint Pain Verified 12/22/23 10:03 Review of Systems Review of Systems: All systems reviewed & are unremarkable except as noted in HPI and below PMFSH Past Medical History Medical History Blood clots in biliary tract following procedure DVT (deep venous thrombosis) Hiatal hernia Hyperlipidemia Obesity KWESI on CPAP Pulmonary embolism 08/2022 Family History Family History Father Heart disease Cerebrovascular accident Mother Heart disease Sibling Hypertension Grandparent Cancer Grandparent Cancer Diabetes mellitus Social History Social History Smoking packs per day: 1 Smoking cigarettes per day: 20.0 Years smoked: 35 Smoking pack-years: 35.00 Smoking status: Former smoker Tobacco type: cigarettes Smoking end date: 11/09/99 Alcohol intake: current Drinks per week: 12 Lack of Transportation: No Lack of Food: Never True Current Housing: I Have Housing Concerned About Future Housing: No Difficulty Paying Gas/Electric Bills: No Difficulty Paying for Meds: No Currently Unemployed: No Education: High School Diploma/GED Difficulty w/ Childcare or Family Care: No Living arrangements: with family Additional living arrangements comments: Spiritual care concerns: No Exam Narrative: GENERAL APPEARANCE: WELL-DEVELOPED, WELL-NOURISHED SKIN: NORMAL COLOR HEAD: NORMOCEPHALIC, NONTRAUMATIC EYES: CLEAR CONJUNCTIVA ENT: OROPHARYNX NORMAL, EARS NORMAL, NOSE NORMAL NECK: SUPPLE, NONTENDER CHEST AND RESPIRATORY: AIRWAY PATENT, NO RESPIRATORY DISTRESS, NO ACCESSO
[2023-12-22] MEDS: HYDROmorphone HCL INJ (*CRX) 1 MG/ML SYR IM (12:24)
[2023-12-22] MEDS: ONDANSETRON HCL ODT 4 MG TABLET PO (12:24)
[2023-12-22 13:21] VITALS: BP 118/79; PULSE 52; RESP 18; TEMP 36.7; O2SAT 97
== END 2023-12-22 13:28 | disposition home or self-care (01) ==
PROVIDERS: Emergency Provider Emergency Medicine; PCP Nurse Practitioner Family
DX: M54.50 Low back pain, unspecified (principal); E78.5 Hyperlipidemia, unspecified; G47.33 Obstructive sleep apnea (adult) (pediatric); Z86.718 Personal history of other venous thrombosis and embolism; Z86.711 Personal history of pulmonary embolism; Z87.891 Personal history of nicotine dependence; Z79.01 Long term (current) use of anticoagulants; Z79.82 Long term (current) use of aspirin; Z79.899 Other long term (current) drug therapy; M47.816 Spondylosis without myelopathy or radiculopathy, lumbar region
CPT/HCPCS: 72131; 81001; 96372; 99284; A9270; J1170

== ENCOUNTER 2024-05-05 00:55 | Day surgery (SDC) | payer MEDICARE, SELFPAY ==
[2024-04-26 11:11] VITALS: BMI 29.2
--- NOTE | 2024-04-26 11:22 | PC.NURSE ---
Report to the Outpatient Waiting Room, entrance under the green pavilion located off [facility], at time _0630am on date ___05/05/24 ____. Planned Procedure Time: _0830am .? Time changes happen often and if your time is changed the preop area will call you the afternoon before. - You and your visitor will be asked to self-screen and do not enter if you have any COVID symptoms. Please call surgeon if you need to reschedule. - A mask is optional within the hospital at this time. Patients may have clear liquids (water, carbonated beverages, clear teas, apple juice) until 3 hours prior to surgery with a maximum of 20 ounces. - No food from midnight until time of surgery and no smoking. This includes no chewing gum, candy or mints. (05:30am) Take only the following medications with a SIP of water on the morning of surgery: ___None DO NOT STOP ANY OF YOUR OTHER PRESCRIPTION MEDICATIONS PRIOR TO SURGERY EXCEPT THE FOLLOWING Medications to discontinue per physician Hold all vitamins and supplements for 3 days prior per Anesthesia Date to take last dose 05/01/[address] Carroll office now to get instructions on Eliquis for PREOP- pt will hold per Dr Carroll orders, pt given office phone number. Please no make-up, nail occitan, hairspray, perfume, deodorant, or body powder the day of surgery.? No jewelry (including any body piercings) or valuables the day of surgery, leave them at home.? Please take a shower or bath the night before, or the morning of, surgery with an antibacterial soap.? Wear comfortable, loose fitting clothing.? - Jewelry must be removed prior to entering the operating room.? Rings and piercings that are not removed may be cut off. - The hospital will not accept responsibility for valuables.? - Please leave all valuables, including medications, at home the day of surgery. If you are going home after surgery, a licensed company driver must drive you home.? - NO public transportation without another adult if you receive anesthesia. - We recommend that an adult stay with you for 24 hours following discharge. - We also recommend that you do not drive, make important decision, drink alcoholic beverages, or take any drugs that were not prescribed by your health care provider for at least 24 hours after your discharge time. Follow any additional instructions given to you from your surgeon. Telephone instructions given to __Patient and asked if any additional questions and then verbalized understanding. Patient advised to call surgeon office or pre surgery nurse liaison [phone] if any additional questions.
[2024-05-05] VITALS (10 sets, daily range): BP systolic 102–138; BP diastolic 65–93; PULSE 63–110; RESP 14–18; TEMP 36.2; O2SAT 92–100
[2024-05-05] MEDS: LACTATED RINGERS 1,000 ML 30 ML IV CONT ×2 (07:00→09:41)
--- NOTE | 2024-05-05 07:31 | WPDHPUPDATE1 ---
History and Physical Update Update Date/Time: 05/05/24 07:31 History and Physical has been reviewed, including an updated exam of the patient. There are NO changes in the patient's condition. Risks, benefits, and alternatives have been discussed and questions answered. Patient agrees to proceed with procedure. Given recent findings by Dr. Erickson on surveillance cystoscopy showing 2 small papillary lesions in the posterior midline I will plan TURBT with gemcitabine installation
--- NOTE | 2024-05-05 08:24 | P.PNAN_ITS ---
Anes - Initial Pre Proc Eval Procedure: Operation Date: 05/05/24 08:30 Proposed Procedures p Cystoscopy Bladder Biopsy with Fulguration, - Jeancarlos Carroll MD s Possible Transurethral Resection Bladder Tumor - Jeancarlos Carroll MD Date/Time: 05/05/24 08:24 Surgeon: Jeancarlos Carroll MD Pre Op Diagnosis: bladder cancer Patient Data Age: 73 Gender: M Height: 1.75 m Weight: 89.05 kg Last Vital Signs Temp 36.2 C L 05/05/24 07:30 Pulse 70 05/05/24 07:30 Resp 16 05/05/24 07:30 BP 112/74 05/05/24 07:30 Pulse Ox 96 05/05/24 07:30 O2 Del Method Room Air 05/05/24 07:30 Allergies Allergy/AdvReac Type Severity Reaction Status Date / Time atorvastatin AdvReac Joint Pain Verified 05/05/24 08:06 Home Medications ?Medication ?Instructions ?Recorded ?Confirmed ?Type apixaban 5 mg tablet (Eliquis) 5 mg PO BID 11/05/22 05/05/24 History multivitamin 1 tablet PO DAILY 11/05/22 05/05/24 History omega-3 360 dt-cpx-fmb-fish oil 1 cap PO DAILY 11/05/22 05/05/24 History 1,200 mg capsule,delayed release trazodone 50 mg tablet 50 mg PO QHS PRN Insomnia 11/05/22 05/05/24 History albuterol sulfate 90 mcg/actuation 2 puff inhalation PRN PRN 11/07/22 04/26/24 History aerosol inhaler Shortness Of Breath tamsulosin 0.4 mg capsule 0.4 mg PO DAILY 11/07/22 05/05/24 History rosuvastatin 5 mg tablet 5 mg PO DAILY 09/04/23 05/05/24 History Patient hx anesthesia problems: none Family hx anesthesia problems: none Results Review: All pre-operative results and documents have been reviewed as part of the pre- operative evaluation. [facility], [facility] Past Medical History Medical History Hiatal hernia Hyperlipidemia DVT (deep venous thrombosis) Obesity Pulmonary embolism 08/2022 KWESI on CPAP Blood clots in biliary tract following procedure Family History Family History Father Heart disease Cerebrovascular accident Mother Heart disease Sibling Hypertension Grandparent Cancer Grandparent Cancer Diabetes mellitus Social History Social History Smoking packs per day: 1.5 Smoking cigarettes per day: 30.0 Years smoked: 30 Smoking pack-years: 45.00 Smoking status: Former smoker Tobacco type: cigarettes Smoking end date: 05/11/99 Alcohol intake: current Drinks per week: 10 Alcohol use details: 10 per week Substance use: never Lack of Transportation: No Lack of Food: Never True Current Housing: I Have Housing Concerned About Future Housing: No Difficulty Paying Gas/Electric Bills: No Difficulty Paying for Meds: No Currently Unemployed: No Education: High School Diploma/GED Difficulty w/ Childcare or Family Care: No Living arrangements: with family Additional living arrangements comments: Spiritual care concerns: No Anes - Eval Final PreProcedure Day of Procedure 05/05/24 08:24 Patient weight: overweight Heart: regular rate and rhythm Lungs: clear to auscultation Airway: Mallampati scale class II Neurological: alert and oriented Last oral intake: >/= 8 hours ASA classification: III Emergent: no Anesthetic plan: proceed Anesthesia type and monitoring: general LMA and standard monitoring Results Review: All pre-operative results and documents have been reviewed as part of the pre- operative evaluation. Informed Consent: The patient's anesthetic plan and its attendant risks and benefits were discussed with the patient/family/POA. Questions were solicited and answers provided to the satisfaction of the patient/family/POA.
[2024-05-05] MEDS: ceFAZolin 2 GM/D5W 50 ML 2 GM/50 ML BAG IVPB (08:34)
[2024-05-05] MEDS: LIDOCAINE 2% GEL UROJET 10 ML PKG MUCOUS MEM (09:01)
--- NOTE | 2024-05-05 09:15 | W.PM.PROC2 ---
Procedure Note - Detailed Date of Procedure 05/05/24 Pre-op Diagnosis bladder cancer Post-op Diagnosis Same Procedure Performed TURBT (Small, 2 cm) Surgeon Jeancarlos Carroll MD Anesthesia General Description of Procedure Patient is brought to the operative suite was prepped draped in routine sterile fashion while in dorsal lithotomy position. 2% xylocaine jelly was introduced intraurethrally and a general anesthetic is administered per the anesthesia department. 24F resectoscope was placed in his bladder. He has no urethral stricture. We placed the resectoscope with great care because of his indwelling inflatable penile prosthesis. There was no urethral stricture. He has minimal prostatic hyperplasia. Careful inspection of the bladder mucosa actually shows 3 small papillary neoplastic lesions, 2 in the right anterior lateral bladder wall and 1 in the posterior bladder wall. The sites were all resected with loop electrode with an attempt made to intrude detrusor muscle for pathological evaluation of invasion. Base of the sites was cauterized with loop electrode. Resectoscope was removed and a Mena catheter was carefully placed to drainage. Patient tolerated the procedure well was taken recovery room good condition Drains Yes Packing No
--- NOTE | 2024-05-05 09:17 | W.PM.PROC2 ---
Procedure Note - Detailed Date of Procedure 05/05/24 Pre-op Diagnosis Bladder cancer Post-op Diagnosis Same Procedure Performed Gemcitabine installation Surgeon Jeancarlos Carroll MD Anesthesia None Description of Procedure With the patient in the supine position, a 16F Mena catheter is placed using sterile technique. Using a protective facemask, gown and double layer of gloves Gemcitabine 2gm in 100cc saline is administered through the catheter/into the bladder. The catheter is then plugged. Patient was instructed to lie supine x20min, then to roll both the left and right x20 min. each. Total dwell time will be 60 min., after which the bladder will be drained and catheter removed.
[2024-05-05] MEDS: SODIUM CHLORIDE 0.9% IV 23.7 ML, GEMCITABINE HCL 1,000 MG BLADDER ×2 (09:23→09:24)
[2024-05-05] MEDS: fentaNYL CITRATE INJ (*CRX) 100 MCG/2 ML VIAL 25 MCG IV PUSH (09:33)
== END 2024-05-05 11:28 | disposition home or self-care (01) ==
PROVIDERS: PCP Nurse Practitioner Family; Visit Provider Urology
PROC: 0TBB8ZX Excision of Bladder, Via Natural or Artificial Opening Endoscopic, Diagnostic (ICD-10-PCS; CPT 52204; principal; 2024-05-05 08:30)
PROC: 0TBB8ZZ Excision of Bladder, Via Natural or Artificial Opening Endoscopic (ICD-10-PCS; CPT 52234; 2024-05-05 08:30)
DX: Z08 Encounter for follow-up examination after completed treatment for malignant neoplasm (principal); C67.4 Malignant neoplasm of posterior wall of bladder; C67.2 Malignant neoplasm of lateral wall of bladder; E78.5 Hyperlipidemia, unspecified; R31.0 Gross hematuria; G47.33 Obstructive sleep apnea (adult) (pediatric); Z79.01 Long term (current) use of anticoagulants; Z79.51 Long term (current) use of inhaled steroids; Z99.89 Dependence on other enabling machines and devices; Z98.890 Other specified postprocedural states; Z87.891 Personal history of nicotine dependence; Z86.711 Personal history of pulmonary embolism; Z86.718 Personal history of other venous thrombosis and embolism; Z80.1 Family history of malignant neoplasm of trachea, bronchus and lung; Z82.49 Family history of ischemic heart disease and other diseases of the circulatory system
CPT/HCPCS: 52234; 88305; J0690; J1100; J2405; J2704; J3010; J7120; J9201

== ENCOUNTER 2024-08-31 07:44 | Outpatient (CLI) | payer MEDICARE, SELFPAY ==
--- OUTSIDE RECORDS SUMMARY | 2024-08-31 07:55 | XMS_ITS | Patient Health Record ---
Author Organization [facility] , Address [address] [place] [address] Care Team Providers Care Sap Trainer Name Role Phone Laquita Jo Primary Care Provider George Major Unavailable [phone] ALLERGIES No Known Allergies RESULTS Component Value Reference Range Notes MRI : Lumbar without contras t Reviewed date:01/27/2024 09:52:12 AM Interpretation:[facility] Symbolic IO complete Performing Lab: Notes/Report: [facility] Symbolic IO complete X ray : Lumbar spine 5 views , AP, Lateral, Spot, Flexion and Extension Reviewed date:01/01/2024 11:38:30 AM Interpretation:953 Performing Lab: Notes/Report: 953 REASON FOR REFERRAL No Information MEDICATIONS Medication SIG (Take, Route, Frequency, Duration) Notes Start Date End Date Status Eliquis Active Tamsulosin HCl Activ e Tylenol Active Suly Aspirin PATIENT AWARE A THINS THE BLOOD AND BE CAREFUL WHILE ON ELIQUIS Active traZODone HCl Active Rosuvastatin Calcium Active PROBLEMS Problem Type ICD Code Onset Dates Problem Status W/U Status Risk SNOMED Code Notes Problem DDD (degenerative disc disease), lumbar (M51.36) Active confirmed Degenerative disc disease (07124820) Problem Facet degeneration of lumbar region (M47.816) Active confirmed Lumbosacral spondylosis without myelopathy (11686942) VITAL SIGNS Height 69 in 01/07/2024 Weight 205 lbs 01/07/2024 BMI 30.27 kg/m2 01/07/2024 PROCEDURES Procedure Date Ordered Date Performed Result Body Sit e Lumbar Epidural Steroid Injection 02/08/2024 02/19/2024 [facility] med advantage ppo Lumbar Epidural Steroid Injection 01/07/2024 01/15/2024 [facility] med complete PPO Encounters Encounter Location Date Provider Diagnosis [facility] [address] [place] [address] 01/01/2024 George Benavides Lumbar radiculopathy M54.16 ; Other low back pain M54.59 ; Myalgia, other site M79.18 ; DDD (degenerative disc disease), lumbar M51.36 and Facet degeneration of lumbar region M47.816 [facility] [address] [place] [address] 04/27/2024 George Benavides [facility] [address] [place] [phone] 12/28/2023 George Benavides [facility] [address] [place] [phone] 02/08/2024 George Benavides Lumbar stenosis with neurogenic claudication M48.062 [facility] [address] [place] [phone] 02/15/2024 George Benavides [facility] [address] [place] [phone] 08/30/2024 George Benavides [facility] [address] [place] [phone] 01/06/2024 George Benavides [facility] [address] [place] [address] 01/07/2024 George Benavides Lumbar stenosis with neurogenic claudication M48.062 ; DDD (degenerative disc disease), lumbar M51.36 ; Facet degeneration of lumbar region M47.816 and Other low back pain M54.59 ASSESSMENTS Encounter Date Diagnosis Assessment Notes Treatment Notes Treatment Clinical Notes 01/01/2024 Lumbar radiculopathy (ICD-10 - M54.16) 01/07/2024 Lumbar stenosis with neurogenic claudication (ICD-10 - M48.062) 01/07/2024 DDD (degenerative disc disease), lumbar (ICD-10 - M51.36) 01/01/2024 Other low back pain (ICD-10 - M54.59) 02/08/2024 Lumbar stenosis with neurogenic claudication (ICD-10 - M48.062) 01/07/2024 Facet degeneration o f lumbar region (ICD-10 - M47.816) 01/01/2024 Myalgia, other site (ICD-10 - M79.18) 01/07/2024 Other low back pain (ICD-10 - M54.59) 01/01/2024 DDD (degenerative disc disease), lumbar (ICD-10 - M51.36) 01/01/2024 Facet degeneration o f lumbar region (ICD-10 - M47.816) PLAN OF TREATMENT No Information Insurance Providers Payer Name Payer Address Payer Phone Subscriber Number Group Number Insured Name Patient Relationship to Insured Coverage Start Date Coverage End Date [facility] Medicare Advantage PPO [address] [address] [place] [address] [id number] Marko Murillo Self - patient is the insured MEDICAL (GENERAL) HISTORY Medical History History ICD Code Blood clots Arthritis Back pain Bladder cancer BPH Denies h/o emotional/psychiatric disorde r Denies h/o drug/chemical dependency Surgical History Surgery Date(Month/Year) Darin rotator cuff repair Right reverse total shoulder replacement Darin TKR
--- OUTSIDE RECORDS SUMMARY | 2024-08-31 07:55 | XMS_ITS ---
Author Organization [facility] Address [address] [facility] [address] [place] [address] Care Team Providers Care Biological Scientist Name Role Phone Laquita Jo Primary Care Provider George Major Unavailable [phone] Encounters Encounter Location Date Provider Diagnosis [facility] [address] [facility] [address] [place] [address] 04/27/2024 George Benavides PLAN OF TREATMENT No Information
--- OUTSIDE RECORDS SUMMARY | 2024-08-31 07:56 | XMS_ITS ---
Author Organization [facility] Address [address] [place] [address] Care Team Providers Care Director Of Marketing Communications Name Role Phone Update, PCP Primary Care Provider Vivek Doss Unavailable [phone] Allergies No Known Allergies REASON FOR VISIT Confirmed cough Medications Medication SIG (Take, Route, Frequency, Duration) Notes Start Date End Date Status traZODone HCl 50 MG 1 tablet at bedtime as needed Orally Once a day for 90 days Active Eliquis 5 MG as directed Orally f or 90 days Active Rosuvastatin Calcium 5 MG 1 tablet Orall y Once a day for 90 days Active Benzonatate 200 MG 1 capsule as needed Orally Three times a day for 10 days 03/08/2024 03/17/2024 Active Medrol 4 MG as directed Orally d aily for 6 days 03/08/2024 03/13/2024 Active Amoxicillin 875 MG 1 tablet Orally twic e a day for 10 day(s) 03/08/2024 03/17/2024 Active Tamsulosin HCl 0.4 MG 1 capsule Orally O nce a day Active Problems Problem Type SNOMED Code ICD Code Onset Dates Problem Status W/U Status Risk Notes Problem Urinary tract obstruction (2382056) Urinary (tract) obstruction (N13.9) Active confirmed Problem High cholesterol (30567118) High cholesterol (E78.00) Active confirmed Problem Blood clotting disorder (84986008) Blood clotting disorder (D68.9) Active confirmed Problem [id number] Anticoagulated (Z79.01) Active confirmed Vital Signs Temperature 99.2 degrees Fahrenheit 03/08/20 24 Blood pressure systolic 126 mm Hg 03/08/20 24 Blood pressure diastolic 70 mm Hg 024 Heart Rate 74 /min 03/08/2024 Respiratory Rate 18 /min 03/08/2024 Height 69 in 03/08/2024 Weight 197.2 lbs 03/08/2024 BMI 29.12 kg/m2 03/08/2024 Oximetry 96 % 03/08/2024 Height-cm 175.26 cm 03/08/2024 Weight-kg 89.45 kg 03/08/2024 Encounters Encounter Location Date Provider Diagnosis [facility] [address] [place] [address] 03/08/2024 Vivek Dawn Acute cough R05.1 ; Sore throat J02.9 ; Wheezing R06.2 ; Anticoagulated Z79.01 ; Counseling on health promotion and disease prevention Z71.89 ; Elevated BP without diagnosis of hypertension R03.0 ; Counseling, unspecified Z71.9 ; Medication management Z79.899 ; Encounter for tobacco use screening Z01.89 ; Alcohol screening Z13.39 ; Encounter for screening for depression Z13.31 and Counseling and coordination of care Z71.89 Assessments Encounter Date Diagnosis (ICD Code) Assessment Notes Treatment Notes Treatment Clinical Notes Section Notes 03/08/2024 Acute cough (ICD-10 - R05.1) 03/08/2024 Sore throat (ICD-10 - J02.9) gargle with warm salt water, take OTC cold medicine, alternate Tylenol and Ibuprofen for fever, ORTIZ, pain, take probiotics, follow up as directed 03/08/2024 Wheezing (ICD-10 - R06.2) use your inhaler as directed 03/08/2024 Anticoagulated (ICD-10 - Z79.01) 03/08/2024 Counseling on health promotion and disease prevention (ICD-10 - Z71.89) 03/08/2024 Elevated BP without diagnosis of hypertension (ICD-10 - R03.0) Please monitor your blood pressure at home and keep a log of readings and follow up with your primary care physician or return to the clinic, The patient/family educated and instructed on diet and exercise 03/08/2024 Counseling, unspecified (ICD-10 - Z71.9) 03/08/2024 Medication management (ICD-10 - Z79.899) 03/08/2024 Encounter for tobacco use screening (ICD-10 - Z01.89) 03/08/2024 Alcohol screening (ICD-10 - Z13.39) 03/08/2024 Encounter for screening for depression (ICD-10 - Z13.31) 03/08/2024 Counseling and coordination of care (ICD-10 - Z71.89) 03/08/2024 Other Please arrange a follow up visit with your primary care physician to discuss your conditions as soon as possible. You may return to the clinic if your signs or symptoms persist or worsen. For life threatening emergencies, please call 911 or go to the closest emergency room for detailed medical care. You must understand that we are not a primary care facility and you have received Urgent Care treatment only, and that you may have been released before all of your medical problems were known or treated. You, the patient, are responsible to make arrangements with your primary care physician as instructed. Please arrange for follow up medical care for your condition within one week. You must understand that as an Urgent Care Clinic, we are not responsible for routine healthcare maintenance. Such services are to be provided by your primary care physician, even though you may have been seen multiple times in our facility. If your condition worsens, we recommend that you receive another evaluation at the emergency room immediately or contact your primary care physician to discuss your concerns. The patient's / family / guardian questions, concerns, and treatment plan were discussed in detail and all questions were answered to full satisfaction. The patient / family/ guardian are in agreement with the plan of care. Plan Of Treatment Medication Medication Name Sig Start Date Stop Date Notes Benzonatate 200 MG 1 capsule as needed Orally Three times a day for 10 days 03/08/2024 03/17/2024 Medrol 4 MG as directed Orally daily for 6 days 03/08/2024 03/13/2024 Amoxicillin 875 MG 1 tablet Orally twic e a day for 10 day(s) 03/08/2024 03/17/2024 Treatment Notes Assessment Notes Sore throat gargle with warm isidra t water, take OTC cold medicine, alternate Tylenol and Ibuprofen for fever, ORTIZ, pain, take probiotics, follow up as directed Wheezing use your inhaler as directed Elevated BP without diagnosi s of hypertension Please monitor your blood pressure at [facility] and keep a log of readings and follow up with your primary care physician or return to the clinic, The patient/family educated and instructed on diet and exercise Other Please arrange a follow up visit with your primary care physician to discuss your conditions as soon as possible. You may return to the clinic if your signs or symptoms persist or worsen. For life threatening emergencies, please call 911 or go to the closest emergency room for detailed medical care. You must understand that we are not a primary care facility and you have received Urgent Care treatment only, and that you may have been released before all of your medical problems were known or treated. You, the patient, are responsible to make arrangements with your primary care physician as instructed. Please arrange for follow up medical care for your condition within one week. You must understand that as an Urgent Care Clinic, we are not responsible for routine healthcare maintenance. Such services are to be provided by your primary care physician, even though you may have been seen multiple times in our facility. If your condition worsens, we recommend that you receive another evaluation at the emergency room immediately or contact your primary care physician to discuss your concerns. The patient's / family / guardian questions, concerns, and treatment plan were discussed in detail and all questions were answered to full satisfaction. The patient / family/ guardian are in agreement with the plan of care. Next Appt Details Follow Up: prn, Reason: Progress Notes * Ton MURILLOOB:1950 ( 73 yo M)Acc No.[id number]:03/08/2024 Patient: Marko PALMA Provider: Yue Dawn PA-C :1950 A ge:73 Y S ex:Male Date:03/08/2024 Address:[address] [place] [address], [id number] Pcp:PCP Update Subjective: * Chief Complaints: * C onfirmed cough * HPI: * Patient Intake: New/Est Jovita muhammad is a n ew patient. Historian Matti grey S elf PCP Jovita muhammad has a Primary Care Provider: Jhonny muhammad's PCP is: [facility] C omplaint: Nasal congestion T he nasal congestion s tarted weeks ago 2 weeks T he nasal discharge i s clear T he severity of the nasal congestion i s moderate A lleviating factors include N othing A ssociated factors include c ough H ave you experienced any COVID related symptoms in the past 48 hours? N o W ithin the past 14 days, have you been in close physical contact (6 feet or closer for a cumulative total of 15 minutes) with anyone who is known to have laboratory-confirmed COVID-19? N o H ave you recently traveled? Y es V accine Status S luis completed Cough T he cough began 2 weeks T he cough is described as d ry, present all day, awakens from sleep, which is frequent, and is moderate A ggravating factors include d eep breathing A lleviating factors include N othing A ssociated factors include n marvel congestion, shortness of breath, sputum production, wheezing M edication(s) for cough include o [id number] cough suppressants H ave you experienced any COVID related symptoms in the past 48 hours? N o W ithin the past 14 days, have you been in close physical contact (6 feet or closer for a cumulative total of 15 minutes) with anyone who is known to have laboratory-confirmed COVID-19? N o H ave you recently traveled? N o V accine Status S luis completed P ain Management: Pain Scale P ain Scale (1-10) 3 A lcohol Screening (18yrs+): Audit-C D id you have a drink containing alcohol in the past year? N o D epression Screening (12yrs+): PHQ-2: How often have the following problems occurred? L ittle interest or pleasure in doing things??Not at all F eeling down, depressed, or hopeless? N ot at all D rug Screening (18yrs+): Drug Abuse Screening Tool H ave you used drugs other than those for medical reasons in the past 12 months? N o D o you use Medical Marijuana or THC Products?No F all Risk (65yrs+): Assessment H ave you had two or more falls in the past year? N o F all Risk Assessment: N o falls in the past year T obacco Screening (All Ages): Tobacco Use (18yrs+) A re you a: N on Smoker H ave you: N ever Smoked D o you use other forms of Tobacco other than cigarettes? N one * ROS: G eneral/Constitutional: Fatigue d enies. F ever d enies. A llergy/Immunology: Seasonal allergies d enies. O phthalmologic: Eye Discharge d enies. E ye Pain d enies. ? E NT: Ear pain d enies. N marvel congestion , admits. S ore throat d enies. R espiratory: Cough , admits, wheezing. S hortness of breath , admits, at times. C ardiovascular: Chest pain d enies. P alpitations d enies. ? G astrointestinal: Abdominal pain d enies. D iarrhea d enies. N ausea d enies. V omiting d enies. H ematology: Bleeding problems d enies. G enitourinary: Difficulty urinating d enies. P ainful urination d enies. M usculoskeletal: Back pain d enies. N garfield pain d enies. P ainful joints d enies. S kin: Itching d enies. R reza d enies. N eurologic: Dizziness d enies. H eadache d enies. T ingling/Numbness d enies. * Medical History: * Surgical History: T umor removed-3 months ago * Hospitalization/Major Diagno stic Procedure: D enies Past Hospitalization * Family History: S pouse: alive. * Medications: T akingTamsulosin HCl 0.4 MG Capsule 1 capsule Orally Once a day traZODone HCl 50 MG Tablet 1 tablet at bedtime as needed Orally Once a day Eliquis 5 MG Tablet as directed Orally Rosuvastatin Calcium 5 MG Tablet 1 tablet Orally Once a day Taking Tamsulosin HCl 0.4 MG Capsule 1 capsule Orally Once a day Taking traZODone HCl 50 MG Tablet 1 tablet at bedtime as needed Orally Once a day Taking Eliquis 5 MG Tablet as directed Orally Taking Rosuvastatin Calcium 5 MG Tablet 1 tablet Orally Once a day * Allergies: N .K.D.A.no[Allergies Verified] Objective: * Vitals: T emp:99.2F, HR:74/min, BP: 126/72 mm Hg,126/70mm Hg, Wt:197.2lbs, Ht: 69 in, BMI:29.12Index, RR:18/min, Oxygen sat %:96%, Ht-cm: 175.26 cm, Wt-k.45 kg. * Examination: G eneral Examination: GENERAL APPEARANCE: i n no acute distress, well developed, well nourished. HEAD: n ormocephalic, atraumatic. EYES: n ormal vision, pupils equal, round. EARS: b oth ears, tympanic membrane dull & distorted.? THROAT: , pharynx erythematous, uvula swollen. NECK/THYROID: n garfield supple, thyroid not palpable. LYMPH NODES: n o cervical adenopathy. SKIN: n o rashes, no suspicious lesions. HEART: n o murmurs, regular rate and rhythm. LUNGS: c lear to auscultation bilaterally, , inhalation = exhalation. ABDOMEN: s oft, nontender, nondistended, no hepatosplenomegaly. MUSCULOSKELETAL: n o CVA tenderness. NEUROLOGIC: n onfocal. PSYCH a lert, oriented. Assessment: * Assessment: 1. S ore throat - J02.9 2 . A cute cough - R05.1 (Primary) 3 . W heezing - R06.2 4 . A nticoagulated - Z79.01 5 . C eulalio on health promotion and disease prevention - Z71.89 6 . E levated BP without diagnosis of hypertension - R03.0 7 . C ounseling, unspecified - Z71.9? 8. M edication management - Z79.899 9 . E ncounter for tobacco use screening - Z01.89 1 0. A lcohol screening - Z13.39 1 1. Encounter for screening for depression - Z13.31 1 2. C eulalio and coordination of care - Z71.89 Plan: * Treatment: 2. S ore throat Notes: gargle with warm salt water, take OTC cold medicine, alternate Tylenol and Ibuprofen for fever, ORTIZ, pain, take probiotics, follow up as directed 3. W heezing Notes: use your inhaler as directed 4. E levated BP without diagnosis of hypertension Notes: Please monitor your blood pressure at home and keep a log of readings and follow up with your primary care physician or return to the clinic, The patient/family educated and instructed on diet and exercise 5. O thers Notes:Please arrange a follow up visit with your primary care physician to discuss your conditions as soon as possible. You may return to the clinic if your signs or symptoms persist or worsen. For life threatening emergencies, please call 911 or go to the closest emergency room for detailed medical care. You must understand that we are not a primary care facility and you have received Urgent Care treatment only, and that you may have been released before all of your medical problems were known or treated. You, the patient, are responsible to make arrangements with your primary care physician as instructed. Please arrange for follow up medical care for your condition within one week. You must understand that as an Urgent Care Clinic, we are not responsible for routine healthcare maintenance. Such services are to be provided by your primary care physician, even though you may have been seen multiple times in our facility. If your condition worsens, we recommend that you receive another evaluation at the emergency room immediately or contact your primary care physician to discuss your concerns. The patient's / family / guardian questions, concerns, and treatment plan were discussed in detail and all questions were answered to full satisfaction. The patient / family/ guardian are in agreement with the plan of care. * Procedure Codes: G 8420 BMI<30 AND >=22 CALC & [id number] DOC RSN FOR NOT SCREEN/REC F/U [id number] DOC MEDS VERIFIED W/PT OR [id number] Pt scrn tbco id as non [id number] Screen hlthy etoh [id number] NEG SCR D PT NOT ELIG F/U/PLN [id number] ACP DISCUSS/DSCN MKR DOCD * Preventive Medicine: Counseling: B P Management: FIRST HYPERTENSIVE BP READING FOLLOW-UP PLAN: F ollow-up 2-3 days with PCP. If condition worsens, call 911 or seek treatment at the Emergency Room immediately. LIFESTYLE RECOMMENDATION: H ypertension education Monitor blood pressure at home and keep a log of readings. REFERRAL TO ALTERNATIVE / PRIMARY CARE PROVIDER: R eferral to general physician Patient instructed to follow up with primary care physician. If patient does not have a primary care physician, patient must establish one. PHYSICAL ACTIVITY RECOMMENDATION: E xercise education DIETARY RECOMMENDATIONS: D ietary management education, guidance, and counseling * Follow Up: p rn * * Sign off status: Completed true * Provider: Yue Dawn PA-C Date: 1 Generated for Tyler vasquez/Nura/Trae on: 0 08/31/2024 08:55 AM EDT History and Physical Notes * HPI (History of Present Illness) Category Sub-Category Detail Notes Category Not es Pain Management Pain Scale Pain Scale (1-10 ): 3 Depression Screening (12yrs+) PHQ-2: How often have the following problems occurred? Little interest or pleasure in doing things?: Not at all Feeling down, depressed, or hopeless?: N ot at all Drug Screening (18yrs+) Drug Abuse Screening Too l Have you used drugs other than those for medical reasons in the past 12 months?: No Do you use Medical Marijuana or THC Prod ucts: No Alcohol Screening (18yrs+) Audit-C Did y ou have a drink containing alcohol in the past year?: No Complaint Nasal congestion The nasal conge stion: started weeks ago 2 weeks The nasal discharge: is clear The severity of the nasal congestion: is moderate Alleviating factors include: Nothing Associated factors include: cough Have you experienced any COVID related s ymptoms in the past 48 hours?: No Within the past 14 days, hav e you been in close physical contact (6 feet or closer for a cumulative total of 15 minutes) with anyone who is known to have laboratory-confirmed COVID-19?: No Have you recently traveled?: Yes Vaccine Status: Series completed Cough The cough began: 2 weeks The cough is described as: d ry, present all day, awakens from sleep, which is frequent, and is moderate Aggravating factors include: deep breath ing Alleviating factors include: Nothing Associated factors include: nasal congestion, shortness of breath, sputum production, wheezing Medication(s) for cough include: over-th e-counter cough suppressants Have you experienced any COVID related s ymptoms in the past 48 hours?: No Within the past 14 days, hav e you been in close physical contact (6 feet or closer for a cumulative total of 15 minutes) with anyone who is known to have laboratory-confirmed COVID-19?: No Have you recently traveled?: No Vaccine Status: Series completed *Patient Intake New/Est Patient is a: new patient. Historian Historian: Self PCP Patient has a Primary Care Provi shawn:: Yes Patient's PCP is:: [facility] Fall Risk (65yrs+) Assessment Have you had two or more falls in the past year?: No Fall Risk Assessment:: No falls in the p ast year Tobacco Screening (All Ages) Tobacco Use (18yrs+) Are you a:: Non Smoker Have you:: Never Smoked Do you use other forms of Tobacco other than cigarettes?: None Examination Category Sub-Category Detail Notes Category Not es General Examination GENERAL APPEARANCE: in no ac [place] distress, well developed, well nourished HEAD: normocephalic, atrau matic EYES: normal vision, pupil s equal, round EARS: both ears, tympanic membrane dull & distorted THROAT: , pharynx erythemato us, uvula swollen NECK/THYROID: neck supple, thyroid not palpable HEART: no murmurs, regular rate and rhythm LUNGS: clear to auscultatio n bilaterally, , inhalation = exhalation ABDOMEN: soft, nontender, non distended, no hepatosplenomegaly NEUROLOGIC: nonfocal SKIN: no rashes, no suspic ious lesions MUSCULOSKELETAL: no CVA tenderness LYMPH NODES: no cervical adenopat hy PSYCH alert, oriented
--- OUTSIDE RECORDS SUMMARY | 2024-08-31 07:56 | XMS_ITS ---
Author Organization [facility] Address [address] [address] Care Team Providers Care Photo Studio Assistant Name Role Phone Laquita Jo Primary Care Provider George Major Unavailable [phone] REASON FOR VISIT INJ Encounters Encounter Location Date Provider Diagnosis [facility] [address] [facility] [address] [place] [address] 08/30/2024 George Benavides PLAN OF TREATMENT No Information
--- OUTSIDE RECORDS SUMMARY | 2024-08-31 07:56 | XMS_ITS | Encounter Summary ---
Author Organization [facility] Address [address] [place] [address] Care Team Providers Care Account Solutions Analyst Name Role Phone Arabella Thompson MD Primary Care Provider + Encounter Details Date Type Department Care Team (Late st Contact Info) Description 09/20/1998 Outpatient Historical [facility] [address] [place] [address] Reyes Hernandes (Two) Social History Tobacco Use Types Packs/Day Years Used Date Smoking Tobacco: Never Assessed Sex and Gender Information Value Date Recorded Sex Assigned at Not on file Legal Sex Male 4:22 AM [employer] Gender Identity Not on file Sexual Orientation Not on file documented as of this encounter Plan of Treatment Not on file documented as of this encounter Visit Diagnoses Not on filedocumented in this encounter Care Teams Account Solutions Analyst Relationship Specialty Start Date End Date Arabella Thompson MD [address] [place] [address] [place] [phone] PCP - General Family Practice 12/30/17 documented as of this encounter
--- OUTSIDE RECORDS SUMMARY | 2024-08-31 07:56 | XMS_ITS | Encounter Summary ---
Author Organization [facility] Address [address] [place] [address] Care Team Providers Care Risk Modeler Name Role Phone Arabella Thompson MD Primary Care Provider + Encounter Details Date Type Department Care Team (Late st Contact Info) Description 08/21/1998 Outpatient Historical [facility] [address] [place] [address] Reyes Hernandes (Two) Social History Tobacco Use Types Packs/Day Years Used Date Smoking Tobacco: Never Assessed Sex and Gender Information Value Date Recorded Sex Assigned at Not on file Legal Sex Male 4:22 AM [employer] REPA[employer] Gender Identity Not on file Sexual Orientation Not on file documented as of this encounter Plan of Treatment Not on file documented as of this encounter Visit Diagnoses Not on filedocumented in this encounter Care Teams Risk Modeler Relationship Specialty Start Date End Date Arabella Thompson MD [address] [place] [address] [place] [phone] PCP - General Family Practice 12/30/17 documented as of this encounter
--- OUTSIDE RECORDS SUMMARY | 2024-08-31 07:56 | XMS_ITS | Clinical Summary ---
Author Organization [facility] Office Center Address [facility] [place] [address] Care Team Providers Care Telemetry Monitor Name Role Phone No, Physician Primary Care Provider [phone] Allergies Active Allergy Reactions Criticality Noted Date Comments Adhesive Tape-Silicones Other (See comments) Low Medications albuterol HFA (PROVENTIL HFA,VENTOLIN HFA,PROAIR HFA) 90 mcg/actuation inhaler Inhale 2 puffs every 4 (four) hours as needed for wheezing 18 g 3 Active traZODone (DESYREL) 50 mg tablet Take 1 tablet (50 mg total) by mouth nightly Active cetirizine (ZyrTEC) 10 mg tablet Take 1 tablet (10 mg total) by mouth daily as needed for allergies Active omega 1-xlq-xek-fish oil 1,200 (144-216) mg capsule Take 1 capsule by mouth daily Active multivitamin tablet Take 1 tablet by mouth daily Active guaiFENesin ER (MUCINEX) 600 mg 12 hr tablet Take 2 tablets (1,200 mg total) by mouth 2 (two) times a day 120 tablet 11 3 Active benzonatate (TESSALON) 100 mg capsuleIndicati ons:Cough Take 1 capsule (100 mg total) by mouth 3 (three) times a day 20 capsule 2 3 Active apixaban (ELIQUIS) 5 mg tabletIndicatio ns:deep venous thrombosis Take 2 tablets (10 mg total) by mouth 2 (two) times a day for 14 doses 28 tablet 3 Active apixaban (ELIQUIS) 5 mg tabletIndicatio ns:deep venous thrombosis Take 1 tablet (5 mg total) by mouth 2 (two) times a day 60 tablet 11 3 Active aspirin 81 mg chewable tablet Take 1 tablet (81 mg total) by mouth daily 30 tablet 11 3 Active guaiFENesin-cod eine (GUAITUSS AC) liquid 100-10 mg/5 mL Take 5 mL by mouth 3 (three) times a day as needed for cough 120 mL 3 Active tamsulosin (FLOMAX) 0.4 mg extended release capsule Take 1 capsule (0.4 mg total) by mouth daily 90 capsule 1 3 Active HYDROcodone-kacey taminophen (NORCO) 7.5-325 mg per tabletIndicatio ns:Pain Take 1 tablet by mouth every 6 (six) hours as needed for pain 20 tablet 4 Active cyclobenzaprine (FLEXERIL) 10 mg tablet Take 1 tablet (10 mg total) by mouth 2 (two) times a day as needed for muscle spasms 20 tablet 4 Active predniSONE (DELTASONE) 20 mg tablet Take 2 tablets (40 mg) by mouth daily 8 tablet 4 Active Active Problems Problem Noted Date Diagnosed Date Bladder mass 10/28/2022 Multifocal pneumonia 10/11/2022 Hypoxemia 10/11/2022 Pleurisy 10/11/2022 KWESI on CPAP 10/11/2022 Hyperlipidemia 10/11/2022 Medical History Medical History Date Comments Hyperlipidemia DVT (deep venous thrombosis) (HCC) PE (pulmonary thromboembolism) (HCC) KWESI on CPAP Family History Medical History Relation Name Comments Heart attack Other Family history of myocardial infarction - (Added by TW Conv) Kidney disease Other Family histor y of kidney disease - (Added by TW Conv) Stroke Other Family history of cerebrovascular accident (CVA) - (Added by TW Conv) Relation Name Status Comments Other Social History Tobacco Use Types Packs/Day Years Used Date Smoking Tobacco: Former Social Connection and Isolat ion Panel [NHANES] Answer Date Recorded In a typical week, how many times do you talk on the phone with family, friends, or neighbors? More than three times a week 10/13/2022 How often do you get togethe r with friends or relatives? More than three times a week 10/13/2022 How often do you attend chur ch or voodoo services? Never 10/13/2022 Do you belong to any clubs o r organizations such as jew groups, unions, fraternal or athletic groups, or school groups? No 10/13/2022 How often do you attend meet ings of the clubs or organizations you belong to? Never 10/13/2022 Are you , , di vorced, , never , or living with a partner? 10/13/2022 Overall Financial Resource Strain (CARDIA) Answe r Date Recorded How hard is it for you to pa y for the very basics like food, housing, medical care, and heating? Not hard at all 10/13/2022 Hunger Vital Sign Answer Date Recorded Within the past 12 months, y ou worried that your food would run out before you got the money to buy more. Never true 10/14/19 23 Within the past 12 months, t he food you bought just didn't last and you didn't have money to get more. Never true 10/13/2022 PRAPARE - Transportation Answer Date Re corded In the past 12 months, has l ack of transportation kept you from medical appointments or from getting medications? No 09/2022 In the past 12 months, has l ack of transportation kept you from meetings, work, or from getting things needed for daily living? No 10/13/2022 Housing Stability Vital Sign Answer Krish e Recorded In the last 12 months, was t here a time when you were not able to pay the mortgage or rent on time? No 10/13/2022 In the last 12 months, how many places have you lived? 1 10/13/2022 In the last 12 months, was t here a time when you did not have a steady place to sleep or slept in a [place] (including now)? No 10/13/2022 Personal Safety Answer Date Recorded Have you ever been in or are you currently in a harmful physical or emotional relationship or is someone making you feel afraid or unsafe? 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 Gender Identity Not on file Sexual Orientation Not on file Obstetrics History Last Filed Vital Signs Vital Sign Reading Time Taken Comments Blood Pressure 120/85 12/19/2023 11:00 PM CDT Pulse 51 12/19/2023 11:00 PM CDT Temperature 36.5 C (97.7 F) 12/19/2023 6:53 PM CDT Respiratory Rate 18 12/19/2023 6:53 PM CDT Oxygen Saturation 91% 12/19/2023 11:00 PM CDT Inhaled Oxygen Concentration - - Weight 93 kg (205 lb) 12/19/2023 6:53 PM CDT Height 175.3 cm (5' 9 ) 12/19/2023 6:53 PM CDT Body Mass Index 30.27 12/19/2023 6:53 PM CDT Plan of Treatment Health Maintenance Due Date Last Done Comments Colon Cancer Screening-Colonoscopy 1950 Depression Screening 1950 Fall Risk Assessment 1950 Hepatitis C Screening 1951 Hepatitis B Screening 1969 Zoster Vaccine (1 of 2) 2001 Well Visit 65+ 2016 Pneumococcal vaccine 65+ (2 of 2 - PCV) 11/24/2018 11/24/2017 Covid-19 Vaccine (4 - 2023-2 5 season) 2024 05/07/2021, 08/20/2020, 07/26/2020 Influenza Vaccine (#1) 2024 05/07/2021 DTaP/Tdap/Td Vaccine (3 - Td or Tdap) 09/23/2027 09/22/2017, 09/19/2017 Colon Cancer Screening-FIT Discontinued 02/11/2017 Abdominal Aortic Aneurysm (A AA) Screen Completed 10/24/2022, 10/24/2022, 02/11/2017 Procedures Procedure Name Priority Date/Time Associated Diagnosis Comments CT ABDOMEN PELVIS W CONTRAST ED 10/24/2022 12:15 PM CDT OCCULT BLOOD, FECAL (FIT) Routine 02/11/2017 10:49 PM CDT from Last 3 Months or Most Recently Relevant to Health Maintenance Results * CT Abdomen Pelvis W Contrast (10/24/2022 12:15 PM CDT) Anatomical Region Laterality Modality Body N/A Computed Tomogra phy 10/24/2022 12:2 9 PM CDT Narrative 10/24/2022 12:41 PM CDT EXAM DESCRIPTION: CT ABDOMEN PELVIS W CONTRAST REASON FOR STUDY: Abdominal pain, acute, nonlocalized Abdominal pain. Pt arrives to ED with complaints of urinary retention beginning 3x days ago. Recently d/c from hospital for pneumonia, Pe's. Patient states no previous surgeries TECHNIQUE: CT scan of the abdomen and pelvis performed with intravenous and without oral contrast using helical scanning technique with dynamic intravenous contrast injection. Reconstructed coronal and sagittal MPR images reviewed. All images stored on PACS. Automated exposure control was used as a dose optimization technique for this examination. CONTRAST TYPE/DOSE: 100mL of IOVERSOL 350 MG IODINE/ML INTRAVENOUS SYRINGE injected via intravenous COMPARISON: Chest CT dated 10/11/2022. Abdominal CT dated 02/11/2017 REFERENCE: Per ACR white paper recommendations, unless otherwise specified no follow-up imaging is recommended for incidental renal and adrenal lesions per consensus recommendations based on imaging criteria. Further lab evaluation could be pursued based on clinical findings. FINDINGS: LOWER CHEST: Mild patchy bibasilar ground-glass corresponds to the areas of consolidation on the prior examination on 10/10/2022 as evidence for resolving pneumonia. Indeterminate nodular consolidation along the periphery of the right lower lobe measuring 2.5 x 1.6 cm, favored to represent scarring. A follow-up chest CT is recommended in 2 months to document resolution. LIVER: The liver is normal in size. No definite liver lesion is seen. GALLBLADDER: Partially distended. No CT evidence of acute cholecystitis. BILE DUCTS: No intrahepatic or extrahepatic ductal dilatation. SPLEEN: Spleen is normal in size. PANCREAS: Pancreas is normal in size. No significant peripancreatic stranding or main ductal dilatation. ADRENALS: Normal. KIDNEYS/URINARY TRACT: Kidneys are normal in size. The left kidney has a transverse lie. No hydronephrosis. Mild perinephric stranding. Small left peripelvic cysts without overt hydronephrosis. No specific follow-up is required. The urinary bladder is partially distended. A 2.1 x 1.8 cm hyperdense mass is noted within the right posterior urinary bladder just adjacent to the ureterovesical junction (118). Additionally there is soft tissue within the mid dependent urinary bladder which could represent a true bladder abnormality or abutting prostate tissue. Moderate diffuse bladder wall thickening is noted. GI: Sigmoid diverticulosis without CT evidence of acute diverticulitis. The small bowel is nondilated without wall thickening or evidence of obstruction. PERITONEUM: No free air. No ascites is seen. No mesenteric lymphadenopathy. RETROPERITONEUM: No retroperitoneal or inguinal lymphadenopathy. REPRODUCTIVE: Prominent prostate with mass effect on the posterior bladder wall. Penile prosthesis. VASCULATURE: The aorta is normal caliber. Moderate noncalcified and calcified plaque. MUSCULOSKELETAL: Grossly unchanged sclerosis of the anterior sacral ala. No new lytic or sclerotic lesion. Severe L4-5 degenerative disc disease. Moderate-severe multilevel lumbar degenerative disc disease is noted elsewhere. OTHER: No other abnormality. IMPRESSION: 1. Indeterminate 2 cm hyperdense mass within the right posterior bladder. This is favored to represent a bladder mass suspicious for malignancy rather than a blood clot. Additionally there is soft tissue within the dependent urinary bladder which may represent bladder mucosal abnormality or prominent prostate exerting mass effect on the bladder. Recommend cystoscopy for further evaluation. 2. Evidence for resolving pneumonia within the lung bases compared to 10/11/2022. A follow-up chest CT is recommended in 2 months to document resolution. 3. Additional, chronic findings as above. THIS IS AN ELECTRONICALLY VERIFIED FINAL REPORT 10/24/2022 12:41 PM - Electronically signed by Franklin Brothers M.D. AG T: Report ID: [id number] Reading Location: [id number] Procedure Note Franklin Brothers MD - 10/24/2022 EXAM DESCRIPTION: CT ABDOMEN PELVIS W CONTRAST REASON FOR STUDY: Abdominal pain, acute, nonlocalized Abdominal pain. Pt arrives to ED with complaints of urinary retention beginning 3x days ago. Recently d/c from hospital for pneumonia, Pe's. Patient states no previous surgeries TECHNIQUE: CT scan of the abdomen and pelvis performed with intravenousand without oral contrast using helical scanning technique with dynamic intravenous contrast injection. Reconstructed coronal and sagittal MPRimages reviewed. All images stored on PACS. Automated exposure control was usedas a dose optimization technique for this examination. CONTRAST TYPE/DOSE: 100mL of IOVERSOL 350 MG IODINE/ML INTRAVENOUSSYRINGE injected via intravenous COMPARISON: Chest CT dated 10/11/2022. Abdominal CT dated 02/11/2017 REFERENCE: Per ACR white paper recommendations, unless otherwise specifiedno follow-up imaging is recommended for incidental renal and adrenal lesionsper consensus recommendations based on imaging criteria. Further labevaluation could be pursued based on clinical findings. FINDINGS: LOWER CHEST: Mild patchy bibasilar ground-glass corresponds tothe areas of consolidation on the prior examination on 10/10/2022 as evidencefor resolving pneumonia. Indeterminate nodular consolidation along theperiphery of the right lower lobe measuring 2.5 x 1.6 cm, favored to representscarring. A follow-up chest CT is recommended in 2 months to document resolution. LIVER: The liver is normal in size. No definite liver lesion is seen. GALLBLADDER: Partially distended. No CT evidence of acutecholecystitis. BILE DUCTS: No intrahepatic or extrahepatic ductal dilatation. SPLEEN: Spleen is normal in size. PANCREAS: Pancreas is normal in size. No significant peripancreatic stranding or main ductal dilatation. ADRENALS: Normal. KIDNEYS/URINARY TRACT: Kidneys are normal in size. The left kidney hasa transverse lie. No hydronephrosis. Mild perinephric stranding. Smallleft peripelvic cysts without overt hydronephrosis. No specific follow-up is required. The urinary bladder is partially distended. A 2.1 x 1.8 cm hyperdense mass is noted within the right posterior urinary bladder just adjacent to the ureterovesical junction (118). Additionally there is soft tissue within the mid dependent urinary bladder which could represent atrue bladder abnormality or abutting prostate tissue. Moderate diffuse bladder wall thickening is noted. GI: Sigmoid diverticulosis without CT evidence of acute diverticulitis.The small bowel is nondilated without wall thickening or evidence ofobstruction. PERITONEUM: No free air. No ascites is seen. No mesenteric lymphadenopathy. RETROPERITONEUM: No retroperitoneal or inguinal lymphadenopathy. REPRODUCTIVE: Prominent prostate with mass effect on the posteriorbladder wall. Penile prosthesis. VASCULATURE: The aorta is normal caliber. Moderate noncalcified and calcified plaque. MUSCULOSKELETAL: Grossly unchanged sclerosis of the anterior sacral ala.No new lytic or sclerotic lesion. Severe L4-5 degenerative disc disease. Moderate-severe multilevel lumbar degenerative disc disease is noted elsewhere. OTHER: No other abnormality. IMPRESSION: 1. Indeterminate 2 cm hyperdense mass within the right posteriorbladder. This is favored to represent a bladder mass suspicious for malignancyrather than a blood clot. Additionally there is soft tissue within the dependent urinary bladder which may represent bladder mucosal abnormality orprominent prostate exerting mass effect on the bladder. Recommend cystoscopy for further evaluation. 2. Evidence for resolving pneumonia within the lung bases compared to 10/11/2022. A follow-up chest CT is recommended in 2 months to document resolution. 3. Additional, chronic findings as above. THIS IS AN ELECTRONICALLY VERIFIED FINAL REPORT 10/24/2022 12:41 PM - Electronically signed by Franklin Brothers M.D. AG T: Report ID: [id number] Reading Location: [id number] us Brisa OCHOA IMG CT PROCEDURES Final Resul t * Occult blood, fecal non neoplasm screening (02/11/2017 10:49 PM CDT) Stool Occult Blood POSITIVE NEGATIVE 02/11/2017 11:[address] [facility] HISTORICAL RESULTS 02/11/2017 10:4 9 PM CDT 02/11/2017 11:[address] [facility] HISTORICAL RESULTS - 02/11/2017 11:27 PM CDT Collected By mr Aylin OCHOA LAB BODY FLUIDS AND STOOL S ORDERABLES Final Result [facility] HISTORICAL RESULTS from Last 3 Months or Most Recently Relevant to Health Maintenance Additional Health Concerns Infection Onset Date Last Indicated MDR gram neg/ESBL Comment:Patients who received care at a healthcare facility outside of the [place] will be placed in Contact Precautions until infection or colonization with specific highly resistant bacteria can be ruled out. Infection Prevention will arrange screening. Please contact Infection Prevention. 08/31/2022 08/31/2022 Insurance [facility] MEDICARE ADVANTAGE U[employer] MEDICARE ADVANTAGE UHC MEDICARE ADVANTAGE Advance Directives For more information, please contact: [phone] Documents on File Type Date Recorded Patient Pecan Huller Expl anation ADVANCE DIRECTIVE 02/15/2017 12:00 AM KARINA R OF [employer] FINANCIAL/MEDICAL * Full Code (Latest Code Status on File) Date Activated Date Inactivated Comments 10/11/2022 1:57 PM 10/13/2022 6:26 PM Care Teams Telemetry Monitor Relationship Specialty Start Date End Date No, Physician PCP - General 12/19/23
--- OUTSIDE RECORDS SUMMARY | 2024-08-31 07:56 | XMS_ITS | Patient Health Record ---
Author Organization [facility] [place] [facility] Address [address] [place] [address] Care Team Providers Care Hydraulic Mechanic Name Role Phone Update, PCP Primary Care Provider Vivek Doss Unavailable [phone] Allergies No Known Allergies Reason For Referral No Information Medications Medication SIG (Take, Route, Frequency, Duration) Notes Start Date End Date Status traZODone HCl 50 MG 1 tablet at bedtime as needed Orally Once a day for 90 days Active Eliquis 5 MG as directed Orally f or 90 days Active Rosuvastatin Calcium 5 MG 1 tablet Orall y Once a day for 90 days Active Tamsulosin HCl 0.4 MG 1 capsule Orally O nce a day Active Problems Problem Type SNOMED Code ICD Code Onset Dates Problem Status W/U Status Risk Notes Problem Urinary tract obstruction (2376865) Urinary (tract) obstruction (N13.9) Active confirmed Problem 346825559 Anticoagulated (Z79.01) Active confirmed Problem High cholesterol (25657859) High cholesterol (E78.00) Active confirmed Problem Blood clotting disorder (64260602) Blood clotting disorder (D68.9) Active confirmed Vital Signs Heart Rate 74 /min 03/08/2024 Temperature 99.2 degrees Fahrenheit 03/08/2024 Respiratory Rate 18 /min 03/08/2024 Blood pressure diastolic 70 mm Hg 03/08/2024 Oximetry 96 % 03/08/2024 Height-cm 175.26 cm 03/08/2024 Weight-kg 89.45 kg 03/08/2024 Height 69 in 03/08/2024 Blood pressure systolic 126 mm Hg 03/08/2024 Weight 197.2 lbs 03/08/2024 BMI 29.12 kg/m2 03/08/2024 Encounters Encounter Location Date Provider Diagnosis [facility] [address] [place] [address] 03/08/2024 Vivek Dawn Acute cough R05.1 ; [...] Notes Treatment Clinical Notes Section Notes 03/08/2024 Sore throat (ICD-10 - J02.9) gargle with warm salt water, take OTC cold medicine, alternate Tylenol and Ibuprofen for fever, ORTIZ, pain, take probiotics, follow up as directed 03/08/2024 Acute cough (ICD-10 - R05.1) 03/08/2024 Wheezing (ICD-10 - R06.2) use your [...] the plan of care. Plan Of Treatment No Information Insurance Providers Payer Name Payer Address Payer Phone Subscriber Number Group Number Insured Name Patient Relationship to Insured Coverage Start Date Coverage End Date [facility] [address] [place] [phone] [id number] Chidi Marko Self - patient is the insured 4 Medical (General) History Medical History History ICD Code Urinary (tract) obstruction N13.9 High cholesterol E78.00 Blood clotting disorder D68.9 Surgical History Surgery Date(Month/Year) Tumor removed-3 months ago
--- OUTSIDE RECORDS SUMMARY | 2024-08-31 07:56 | XMS_ITS | CONTINUITY OF CARE DOCUMENT ---
Author Name curry curry Address Unknown Organization [facility] Address [address] [place] [address] Phone [phone] Care Team Providers Care Electrical Technician Instructor Name Role Phone Jacek CARVALHO, Aimee Unavailable [phone] [employer] ENGINEER, DELORA Unavailable [phone] [employer] ENG[employer]ER, DELORA Unavailable [phone] PROBLEMS Condition Status Date Provider Notes Dyspnea on exertion active Angel Ahaneudyzai Family hx of heart disease, CVA active Angel Ahmedzai Cough active Agnel Ahmedzai Former smoker active Angel Ahmedzai ENCOUNTERS Date Type Provider Location Encounter Diag nosis - In-person encounter Office Visit Aimee Read MD [facility] Family hx of heart disease, CVACoughFormer smoker VITAL SIGNS Date Observation Value Provider Body Mass Index (Ratio) 29.53 kg/m2 Leland Read MD blood pressure, diastolic -1 mm[Hg] Li nkLognilsa blood pressure, systolic 131 mm[Hg] Katie Acosta blood pressure, diastolic 79 mm[Hg] Sh ruddy Kisha blood pressure, systolic 131 mm[Hg] She renée Kisha height E&M 69 [in_i] Susanne Kisha weight E&M 200 [lb_av] Susanne Kisha pulse rate 81 /min Susanne Beard respiratory rate E&M 20 /min Susanne Beard oxygen saturation, oximetry 95 % Susanne Beard blood pressure, cuff size regular Sh ruddy Beard HISTORY OF MEDICATION USE Medication Status Instructions Dates Provider Indications Com ments trazodone 50 mg tablet active Angel Mayorga albuterol sulfate 90 mcg/actuation HFA aerosol inhaler active Angel Mayorga aspirin 325 mg capsule active Angel Mayorga SOCIAL HISTORY Date Observation Value Provider social history E&M S moking History: Jovita muhammad is a former smoker. Angel Mayorga cigarette use yes Susanne Beard smoking status Former smoker Susanne Levi franki social history reviewed E&M reviewed - no changes required Angel Mayorga INSURANCE PROVIDERS Payer name Policy type / Coverage type [place] red democrat ID [employer] [facility] ADVANTAGE PLAN PPO ([facility]) Medicare [id number] ADVANCE DIRECTIVES Name Date DISCUSSED - NO DECISION MADE TREATMENT PLAN Date Name Performer [id number],S, Angel Morales i [id number],W, Angel Morales i Cardiology Angel Mayorga Cardiology Angel Mayorga Date Name Stress Exercise Card iolite Complete Echo CXR- PA/Lat
--- OUTSIDE RECORDS SUMMARY | 2024-08-31 07:56 | XMS_ITS | Encounter Summary ---
Author Organization [facility] Address 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
--- OUTSIDE RECORDS SUMMARY | 2024-08-31 07:56 | XMS_ITS | Clinical Summary ---
Author Organization [facility] Address [address] [place] [address] Care Team Providers Care Tobacco Prizer Name Role Phone Arabella Thompson MD Primary Care Provider + Allergies Active Allergy Reactions Criticality Noted Date Comments Morphine Nausea and Vomiting Low 02/13/2009 Medications apixaban (ELIQUIS) 5 mg tablet Take 5 mg by mouth. Active atorvastatin (LIPITOR) 10 mg tablet Take 10 mg by mouth. Active traZODone (DESYREL) 50 mg tablet Take 50 mg by mouth. Active Lacto.acidophilu s-Bif.animalis (PROBIOTIC) 5 billion cell Capsule, Sprinkle Take by mouth. 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 Gender Identity Not on file Sexual Orientation Not on file Last Filed Vital Signs Vital Sign Reading Time Taken Comments Blood Pressure 130/84 01/18/2018 4:02 PM CDT Pulse 70 01/18/2018 4:02 PM CDT Temperature 36.9 C (98.5 F) 01/18/2018 4:02 PM CDT Respiratory Rate 20 02/21/2009 4:45 PM CDT Oxygen Saturation 95% 01/18/2018 4:02 PM CDT Inhaled Oxygen Concentration - - Weight 89.1 kg (196 lb 8 oz) 01/18/2018 4:02 PM CDT Height 172.7 cm (5' 8 ) 01/18/2018 4:02 PM CDT Body Mass Index 29.88 01/18/2018 4:02 PM CDT Plan of Treatment Health Maintenance Due Date Last Done Comments COLORECTAL SCREENING 1996 Colorectal Cancer Screening 1996 FIT-DNA Q 3 years 1996 FIT/FOBT Q 1 year 1996 Flex Sig/CT Colonography Q 5 years 1996 PNEUMOCOCCAL VACCINE 50+ YEARS (1 of 1 - PCV) 05/08/20 ZOSTER VACCINE (1 of 2) 2001 INFLUENZA VACCINE (#1) 2023 RSV VACCINE (60+ or ) (1 - 1-dose 75+ series) 2026 DTAP/TDAP/TD VACCINES (2 - Tdap) 09/20/2027 09/20/19 18 Medical Devices Implanted Type Area Ornamental Metal Worker Helper Device Identifier Shelf Expiration Date Model / Serial / Lot Log [id number] - Penile Implants - 1 - Penile Titan Scrotal 18cm [id number] Implanted:Qty: 1 on 02/21/2009 at [facility] Penile N/A: Penis MENTOR LUCY 12/09/2012 [id number] / / [id number] Titan Assembly Kit Implanted:Qty: 1 on 02/21/2009 at [facility] N/A: Penis 10/09/2013 [id number] / / [id number] Insurance Advance Directives For more information, please contact: [phone] * Full Code (Latest Code Status on File) Date Activated Date Inactivated Comments 02/21/2009 11:50 AM 02/21/2009 9:37 PM * Full Code Date Activated Date Inactivated Comments 02/21/2009 9:37 AM 02/21/2009 11:50 AM Care Teams Tobacco Prizer Relationship Specialty Start Date End Date Arabella Thompson MD [address] [place] [address] [place] [address] PCP - General Family Practice 12/30/17
--- OUTSIDE RECORDS SUMMARY | 2024-08-31 07:56 | XMS_ITS | Clinical Summary ---
Author Organization [facility] Address [address] [place] [address] Care Team Providers Care Telephone Directory Deliverer Name Role Phone Bailey Reynolds APRN-ORGANIZATIONAL DEVELOPMENT DIRECTOR Primary Care Provider Source Comments [facility],non-owned Affiliates and Associated Physician Practices is amultiple site organization consisting of ambulatory clinics and hospital sitesin [place], [place], [place] and [place]. This disclosure is being madepursuant to the Care Everywhere program and may not contain all information available regarding this patient. Last updated 18.[facility] Allergies Active Allergy Reactions Criticality Noted Date Comments Adhesive Sensitivity 10/27/2016 Morphine 10/27/2016 Patient states he experiences cold sweats with morphine Medications * Be aware that medications may not be up to date on this document. Alwaysverify current medications with the patient. traZODone (DESYREL) 50 MG tablet Take 50 mg by mouth at bedtime Active Multiple Vitamin (MULTI VITAMIN PO) Take 1 tablet by mouth once daily Active [place]-3 Fatty Acids (FISH OIL PO) Take 1 tablet by mouth once daily Active Probiotic Product (PROBIOTIC DAILY) capsule Take 1 capsule by mouth once daily Active triamcinolone acetonide (KENALOG) 0.1 % cream Apply 1 Each to affected area 2 times daily 0 08/26/2018 Active aspirin (Aspirin) 325 MG tablet Take 325 mg by mouth once daily Active Active Problems Problem Noted Date Diagnosed Date Primary osteoarthritis of left knee 03/11/2019 Immunizations Immunization Administration Dates Next Due DTaP VACCINE IM (6wk-6yrs) 09/19/2017 PNEUMOCOCCAL PPSV23 11/24/2017 TDAP (7yrs+) 09/22/2017 Family History Medical History Relation Name Comments COPD - Chronic Obstructive Pulmonary Disease Brothjorge luis toribio Sleep Disorder - Sleep apnea Brother catarino Relation Name Status Comments Brothjorge luis toribio Alive Social History Tobacco Use Types Packs/Day Years Used Date Smoking Tobacco: Former Cigarettes 1 30 0 05/11/1969 - 05/11/1999 Smokeless Tobacco: Never Tobacco Cessation:Counseling Given: Yes Alcohol Use Standard Drinks/Week Comments Yes 5 (1 standard drink = 0.6 oz pur e alcohol) Sex and Gender Information Value Date Recorded Sex Assigned at Not on file Legal Sex Male 9:40 AM CDT Gender Identity Not on file Sexual Orientation Not on file Last Filed Vital Signs Vital Sign Reading Time Taken Comments Blood Pressure 155/91 02/24/2022 8:11 AM CDT Pulse 60 02/24/2022 8:11 AM CDT Temperature 36.3 C (97.4 F) 02/24/2022 8:11 AM CDT Respiratory Rate 18 05/27/2019 8:28 AM CREAM SEPARATOR OPERATOR Oxygen Saturation 90% 05/27/2019 8:28 AM CREAM SEPARATOR OPERATOR Inhaled Oxygen Concentration - - Weight 91.2 kg (201 lb) 02/24/2022 8:11 AM CDT Height 175.3 cm (5' 9 ) 02/24/2022 8:11 AM CDT Body Mass Index 29.68 02/24/2022 8:11 AM CDT Plan of Treatment Health Maintenance Due Date Last Done Comments COLOGUARD (AGES 45-75) - COL ON CA SCREENING 1951 COLON MONITORING 1951 COLONOSCOPY - COLON CA SCREENING 1951 CT COLONOGRAPHY - COLON CA SCREENING 1951 Colorectal Cancer Screening 1951 FIT - COLON CA SCREENING 1951 FLEX SIG - COLON CA SCREENING 1951 LIPID TESTING 1951 HEPATITIS C SCREENING 05/03/1969 ZOSTER VACCINE (1 of 2) 2001 Respiratory Syncytial Virus (RSV) Vaccine Pt: or over 60 yrs (1 - Risk 60-74 years 1-dose series) 2011 AAA SCREENING 2016 PNEUMOCOCCAL VACCINE 50+ (2 of 2 - PCV) 11/24/2018 11/24/2017 SCREENING FOR DIABETES 05/02/2022 05/02/2019 COVID-19 VACCINE (1 - 2023-2 5 season) 2024 DEPRESSION SCREENING 05/11/2024 MEDICARE AWV CALENDAR YEAR 2024 INFLUENZA VACCINE (Season Ended) 2025 DTAP/TDAP/TD VACCINES (3 - T d or Tdap) 09/23/2027 09/22/2017, 09/19/2017 HEPATITIS B VACCINE Aged Out No longe r eligible based on patient's age to complete this topic HIB VACCINE Aged Out No longer eligi ble based on patient's age to complete this topic HPV VACCINE Aged Out No longer eligi ble based on patient's age to complete this topic MENINGOCOCCAL (Group B) VACCINE SHARED DECISION-MAKING Aged Out No longer eligible based on patient's age to complete this topic MENINGOCOCCAL GROUPS A/C/Y/W VACCINE Aged Out No longer eligible b ased on patient's age to complete this topic Medical Devices Implanted Type Area Block Cutter Device Identifier Shelf Expiration Date Model / Serial / Lot Kit Acc Ams 700 Penl Impl Implanted:Qty : 1 on 01/26/2017 by Chaka Fatima MD at [facility] 12/03/2021 [id number] / / [id number] Pros Penl Ams 700cx Ms Food Counselor 18cm Implanted:Qty : 1 on 01/26/2017 by Chaka Fatima MD at [facility] 09/17/2018 [id number] / / [id number] Pros Penl Ams 700 Ms Food Counselor Precnct Infl Implanted:Qty : 1 on 01/26/2017 by Chaka Fatima MD at [facility] 12/26/2018 [id number] / / [id number] Cmnt Bone Djo Srg Cblt 40gm Hvisc Strl Implanted:Qty : 2 on 05/25/2019 by Joey Lacy MD at [facility] Left: Knee [employer] 06/02/2020 [id number] / / [id number] Cmpnt Fem Kn Lt Cr Cmnt Prm Vngrd Intlk Implanted:Qty : 1 on 05/25/2019 by Joey Lacy MD at [facility] Left: Knee [employer] 02/26/2029 [id number] / / [id number] Tray Tib 79mm Kn Cocr I Beam Implanted:Qty : 1 on 05/25/2019 by Joey Lacy MD at [facility] Left: Knee [employer] 03/25/2029 [id number] / / [id number] Cmpnt Ptlr 31mm 1 Pg Wire Ascnt Arcm Kn Implanted:Qty : 1 on 05/25/2019 by Joey Lacy MD at [facility] Left: Knee [employer] 03/22/2024 [id number] / / [id number] Vngrd Arcm Kn Ant Stab Implanted:Qty : 1 on 05/25/2019 by Joey Lacy MD at [facility] Left: Knee [employer] 04/07/2023 [id number] / / [id number] Procedures Procedure Name Priority Date/Time Associated Diagnosis Comments COMPREHENSIVE METABOLIC PANEL STAT 05/02/2019 7:53 AM CREAM SEPARATOR OPERATOR Preoperative examination from Last 3 Months or Most Recently Relevant to Health Maintenance Results * COMPREHENSIVE METABOLIC PANEL (05/02/2019 7:53 AM CREAM SEPARATOR OPERATOR) [facility] Glucose 105 70 - 105 mg/dL 05/02/2019 8:23 AM CREAM SEPARATOR OPERATOR [facility] Sodium 140 136 - 145 mmol/L 05/02/2019 8:23 AM CREAM SEPARATOR OPERATOR [facility] Potassium 4.2 3.5 - 4.7 mmol/L 05/02/2019 8:23 AM CREAM SEPARATOR OPERATOR [facility] Chloride 106 98 - 107 mmol/L 05/02/2019 8:23 AM CREAM SEPARATOR OPERATOR [facility] CO2 26 23 - 31 mmol/L 05/02/2019 8:23 AM [facility] Calcium 9.2 8.4 - 10.4 mg/dL 05/02/2019 8:23 AM [facility] Anion Gap 8 8 - 16 mmol/L 05/02/2019 8:23 AM [facility] BUN 16 8.4 - 25.7 mg/dL 05/02/2019 8:23 AM [facility] Creatinine 0.97 0.72 - 1.25 mg/dL 05/02/2019 8:23 AM [facility] Alkaline Phosphatase 73 40 - 150 U/L 05/02/2019 8:23 AM [facility] ALT 22 0 - 61 U/L 05/02/2019 8:23 AM [facility] AST 19 5 - 34 U/L 05/02/2019 8:23 AM [facility] Protein Total 7.0 6.4 - 8.3 gm/dL 05/02/2019 8:23 AM [facility] Albumin 4.1 3.2 - 4.6 gm/dL 05/02/2019 8:23 AM [facility] Bilirubin Total 0.3 0.2 - 1.2 mg/dL 05/02/2019 8:23 AM [facility] eGFR by MDRD >60 >60 mL/min/1.7 3m2 05/02/2019 8:23 AM [facility] eGFR by MDRD >60 >60 mL/min/1.7 3m2 05/02/2019 8:23 AM [facility] Blood BLOOD SPECIMEN / Unknown Venipuncture / Unknown 05/02/2019 7:53 AM CREAM SEPARATOR OPERATOR 05/02/2019 8:03 AM CREAM SEPARATOR OPERATOR us Mee Malagon GUIDE TRAVEL-ORGANIZATIONAL DEVELOPMENT DIRECTOR LAB - CHEMISTRY OR DERABLES Final Result [facility] [address] [place] [address] from Last 3 Months or Most Recently Relevant to Health Maintenance Insurance SELF PAY NO INSURANCE Member Subscriber Plan / Payer (Ef fective for All Dates) Name:Chidi Marko [place] Member ID:Not on file Relation to Subscriber:Not on file Name:MARKO MURILLO Subscriber ID:Not on file (Home) Address: [address] [place] [address] Payer ID:Not on file Group ID:Not on file Type:Self Pay Address: [facility] MANAGED MEDICARE ADV MEDICARE [facility] MANAGED MEDICARE ADV * Guarantor: MARKO MURILLO Account Type Relation to Patient Date of Phone Billing Address Personal/Family [address] [phone] SELF PAY NO INSURANCE Member Subscriber Plan / Payer (Ef fective for All Dates) Name:ChidiMarko salazar Member ID:Not on file Relation to Subscriber:Not on file Name:SANTIAGO MURILLOY Subscriber ID:Not on file Address: [address] [phone] Payer ID:Not on file Group ID:Not on file Type:Self Pay Address: [facility] MANAGED MEDICARE ADV * Guarantor: MARKO MURILLO Account Type Relation to Patient Date of Phone Billing Address Personal/Family [address] [phone] SELF PAY NO INSURANCE Member Subscriber Plan / Payer (Ef fective for All Dates) Name:Marko Murillo Member ID:Not on file Relation to Subscriber:Not on file Name:CHIDIMARKO Subscriber ID:Not on file Address: [address] [phone] Payer ID:Not on file Group ID:Not on file Type:Self Pay Address: [facility] MANAGED MEDICARE ADV * Guarantor: MARKO MURILLO Type Relation to Patient Date of Phone Billing Address Personal/Family [address] [place] [address] SELF PAY NO INSURANCE Member Subscriber Plan / Payer (Ef fective for All Dates) Name:ChidiMarko Member ID:Not on file Relation to Subscriber:Not on file Name:SANTIAGO MURILLOY Subscriber ID:Not on file Address: [address] [place] [address] Payer ID:Not on file Group ID:Not on file Type:Self Pay Address: [facility] MANAGED MEDICARE ADV Advance Directives * Full Code (Latest Code Status on File) Date Activated Date Inactivated Comments 05/25/2019 12:55 PM 05/27/2019 12:36 PM Care Teams Telephone Directory Deliverer Relationship Specialty Start Date End Date Bailey Reynolds, GUIDE TRAVEL-ORGANIZATIONAL DEVELOPMENT DIRECTOR [address] [place] [phone] PCP - General 11/21/21
--- OUTSIDE RECORDS SUMMARY | 2024-08-31 07:56 | XMS_ITS | Encounter Summary ---
Author Organization [facility] Address [address] [facility] [place] [address] Care Team Providers Care Production Specialist Name Role Phone Rodolfo Bailey Nova CLERICAL CLERK-LETTERER Primary Care Provider Encounter Details Date Type Department Care Team (Late st Contact Info) Description 11/26/2023 Lab Requisition [facility] - DermPath Lab [address] [facility] [facility] [place] [address] Marko Reed MD [address] [place] [address] Social History Tobacco Use Types Packs/Day Years Used Date Smoking Tobacco: Former Cigarettes 1 30 0 05/11/1969 - 05/11/1999 Smokeless Tobacco: Never Alcohol Use Standard Drinks/Week Comments Yes 5 (1 standard drink = 0.6 oz pur e alcohol) Sex and Gender Information Value Date Recorded Sex Assigned at Not on file Legal Sex Male 9:40 AM CDT Gender Identity Not on file Sexual Orientation Not on file documented as of this encounter Functional Status * Is person deaf or have serious hearing difficulty? Answer Date of Assessment Author No 10/27/2016 6:24 AM Ruby Marquez RN * Is person blind or have serious difficulty seeing? Answer Date of Assessment Author No 10/27/2016 6:24 AM KATLYNT Ruby Rosa RN * Does person have serious difficulty walking/climbing stairs? Answer Date of Assessment Author No 10/27/2016 6:24 AM Ruby Marquez RN * Does person have difficulty dressing/bathing? Answer Date of Assessment Author No 10/27/2016 6:24 AM Ruby Marquez RN * Does person have difficulty doing errands alone? Answer Date of Assessment Author No 10/27/2016 6:24 AM Ruby Marquez RN documented as of this encounter Mental Status * Does person have difficulty concentrating/remembering/making decisions? Answer Entry Date Author No 10/27/2016 6:24 AM Ruby Marquez RN documented in this encounter Plan of Treatment Not on file documented as of this encounter Procedures Procedure Name Priority Date/Time Associated Diagnosis Comments DERMATOPATHOLOGY Routine 11/25/2023 3:33 AM CDT documented in this encounter Results * DERMATOPATHOLOGY (11/25/2023 3:33 AM CDT) Case Report Dermatopathology Report Case: [id number] Authorizing Provider: Marko Reed MD Collected: 11/25/2023 03:33 AM Ordering Location: [facility] - Received: 11/26/2023 09:24 AM DermPath Lab Pathologist: Roro Hernandes MD Specimen: Skin, right lower eyelid 4 2:09 PM CDT DERMATOPATHOLOGY LABORATORY Final Diagnosis Specimen A. SKIN, right lower eyelid: BENIGN VERRUCOUS KERATOSIS, INFLAMED (L82.1) 4 2:09 PM CDT DERMATOPATHOLOGY LABORATORY Clinical History [place] 4 2:09 PM CDT DERMATOPATHOLOGY LABORATORY Gross Description Specimen A: Received is one formalin filled container labeled with the patient's name and designated right lower eyelid. The specimen consists of a shave biopsy measuring 3x2x1;3x2x1 mm. Jar 0. 4 2:09 PM CDT DERMATOPATHOLOGY LABORATORY Microscopic Description Specimen A. SKIN, right lower eyelid: Sections show hyperkeratosis, papillomatosis, hypergranulosis, and acanthosis. Inflammatory cells are present within the dermis. These histological findings can be seen in a verruca vulgaris or a seborrheic keratosis. 4 2:09 PM CDT DERMATOPATHOLOGY LABORATORY Disclaimer An external and internal positive and negative controls are appropriate for the histochemical, immunohistochemical and immunofluorescence stain(s) in this case (if any), except where stated explicitly. The performance characteristics of the stain(s) cited in this report were developed and its performance characteristic determined by the Dermatopathology Laboratory at [facility], directed by Dr. Danny Hogan. These tests need not be, and therefore are not, approved by the [place] Food and Drug Administration. The tests are used for clinical purposes. Billing Codes Specimen Charges Stain Charges 51912 1 4 2:09 PM CDT DERMATOPATHOLOGY LABORATORY Embedded Images 4 2:09 PM CDT DERMATOPATHOLOGY LABORATORY Pathology/Cytolo gy TISSUE SPECIMEN FROM SKIN / Unknown 11/25/2023 3:33 AM CDT 11/26/2023 9:24 AM CDT Marko Reed MD LAB - PATHOLOGY/CYTOLOGY ORDERAB LES Final Result DERMATOPATHOLOGY LABORATORY [facility] Department of Dermatology [address], [address] [phone] documented in this encounter Visit Diagnoses Not on filedocumented in this encounter Care Teams Production Specialist Relationship Specialty Start Date End Date Bailey Ryenolds, CLERICAL CLERK-LETTERER [address] [place] [address] [place] [phone] PCP - General 11/21/21 documented as of this encounter
--- OUTSIDE RECORDS SUMMARY | 2024-08-31 07:56 | XMS_ITS | Encounter Summary ---
Author Organization [facility] Address [address] [place] [address] Care Team Providers Care County Coroner Name Role Phone Arabella Thompson MD Primary Care Provider + Encounter Details Date Type Department Care Team (Late st Contact Info) Description 02/16/2004 Outpatient Historical [facility] [address] [place] [address] Reyes Hernandes (Two) Social History Tobacco Use Types Packs/Day Years Used Date Smoking Tobacco: Never Assessed Sex and Gender Information Value Date Recorded Sex Assigned at Not on file Legal Sex Male 4:22 AM CREW CALLER Gender Identity Not on file Sexual Orientation Not on file documented as of this encounter Plan of Treatment Not on file documented as of this encounter Visit Diagnoses Not on filedocumented in this encounter Care Teams County Coroner Relationship Specialty Start Date End Date Arabella Thompson MD [address] [place] [address] [place] [phone] PCP - General Family Practice 12/30/17 documented as of this encounter
--- OUTSIDE RECORDS SUMMARY | 2024-08-31 07:56 | XMS_ITS | Encounter Summary ---
Author Organization [facility] Address [address] [place] [address] Care Team Providers Care Technical Support Representative Name Role Phone Arabella Thompson MD Primary Care Provider + Encounter Details Date Type Department Care Team (Late st Contact Info) Description 08/27/2000 Outpatient Historical [facility] [address] [place] [address] Reyes Hernandes (Two) Social History Tobacco Use Types Packs/Day Years Used Date Smoking Tobacco: Never Assessed Sex and Gender Information Value Date Recorded Sex Assigned at Not on file Legal Sex Male 4:22 AM ORDER TO DELIVERY SUPERVISOR Gender Identity Not on file Sexual Orientation Not on file documented as of this encounter Plan of Treatment Not on file documented as of this encounter Visit Diagnoses Not on filedocumented in this encounter Care Teams Technical Support Representative Relationship Specialty Start Date End Date Arabella Thompson MD [address] [place] [address] [place] [phone] PCP - General Family Practice 12/30/17 documented as of this encounter
--- OUTSIDE RECORDS SUMMARY | 2024-08-31 07:56 | XMS_ITS | Referral Summary ---
Author Organization [facility] Address [address] [place] [address] Care Team Providers Care Die Cast Patternmaker Name Role Phone No, Physician Primary Care Provider [phone] Allergies Active Allergy Reactions Criticality Noted Date [...] daily as needed for allergies Active omega 6-jpd-sja-fish oil 1,200 (144-216) mg capsule Take 1 [...] 10/11/2022 KWESI on CPAP 10/11/2022 Hyperlipidemia 10/11/2022 Social History Tobacco Use Types Packs/Day Years [...] 10/13/2022 How often do you attend chur or nondenominational services? Never 10/13/2022 Do you belong to any clubs o r organizations such as episcopalian groups, unions, fraternal or athletic groups, or [...] place to sleep or slept in a usp (including now)? No 10/13/2022 Personal Safety Answer Date Recorded Have you ever been in or are you currently in a harmful physical or emotional relationship or is someone making you feel afraid or unsafe? Denies 12/19/2023 Sex and Gender Information Value Date Recorded Sex Assigned at Not on file Legal Sex Male 12:31 AM MARINE STEAMFITTER Gender Identity Not on file Sexual Orientation [...] 12/19/2023 6:53 PM CDT Plan of Treatment Not on file Procedures Procedure Name Priority Date/Time Associated Diagnosis [...] Franklin Brothers M.D. AG T: Report ID: [id number] Reading Location: [id number] Procedure Note Franklin Brothers MD - 10/24/2022 [...] Franklin Brothers M.D. AG T: Report ID: [id number] Reading Location: [place] [address] PROCEDURES Final Resul t * Occult blood, fecal non neoplasm screening (02/11/2017 10:49 PM CDT) Stool Occult Blood POSITIVE NEGATIVE 02/11/2017 11:27 PM CDT [facility] HISTORICAL RESULTS 02/11/2017 10:4 9 PM CDT 02/11/2017 11:12 PM CDT Narrative [facility] HISTORICAL RESULTS - 02/11/2017 11:27 PM CDT Collected By mr Aylin OCHOA LAB BODY FLUIDS AND STOOL S ORDERABLES Final Result [facility] H[facility] RESULTS from Last 3 Months or [...] Please contact Infection Prevention. 08/31/2022 08/31/2022 Insurance [facility] Address: [address] [address] [place] [address] [facility] Address: [address] [address] [place] [address] [employer] [facility] ADVANTAGE Advance Directives For more information, please contact: [phone] Documents on File Type Date Recorded Patient Jack Setter Expl anation ADVANCE DIRECTIVE 02/15/2017 12:00 AM KARINA R OF INTERN FINANCIAL/MEDICAL * Full Code (Latest Code Status on File) Date Activated Date Inactivated Comments 10/11/2022 1:57 PM 10/13/2022 6:26 PM Care Teams Die Cast Patternmaker Relationship Specialty Start Date End Date No, Physician PCP - General 12/19/23
--- OUTSIDE RECORDS SUMMARY | 2024-08-31 07:56 | XMS_ITS | Encounter Summary ---
Author Organization [facility] Address [address] [place] [address] Care Team Providers Care Fiberglass Boat Parts Finisher Name Role Phone Arabella Thompson MD Primary Care Provider + Encounter Details Date Type Department Care Team (Latest Contact Info) Description 01/28/2006 Outpatient Historical HIS [place] [address] [place] [address] Malfunc Dev/Graft NEC (Primary Dx) Social History Tobacco Use Types Packs/Day Years Used Date Smoking Tobacco: Never Assessed Sex and Gender Information Value Date Recorded Sex Assigned at Not on file Legal Sex Male 4:22 AM SHAVING MACHINE OPERATOR Gender Identity Not on file Sexual Orientation Not on file documented as of this encounter Plan of Treatment Not on file documented as of this encounter Procedures Procedure Name Priority Date/Time Associated Diagnosis Comments HEMOGLOBIN AND HEMATOCRIT Routine 01/20/2006 7:25 AM CDT documented in this encounter Results * (ABNORMAL) HEMOGLOBIN AND HEMATOCRIT (01/20/2006 7:25 AM CDT) HEMOGLOBIN 18.4(H) 13.6 - 16.5 g/dL INTERFACE SYSTEM HEMATOCRIT 52.8(H) 40.0 - 48.0 % INTERFACE SYSTEM 01/20/2006 7:25 AM CDT us Chaka Fatima MD HEMATOLOGY ORDERABLES Amber shepherd Result INTERFACE SYSTEM Refer to clinic/hospital department documented in this encounter Visit Diagnoses Diagnosis Mechanical complication of genitourinary device, implant, and graft, other- Primary documented in this encounter Care Teams Fiberglass Boat Parts Finisher Relationship Specialty Start Date End Date Arabella Thompson MD [address] [place] [address] [place] [phone] PCP - General Family Practice 12/30/17 documented as of this encounter
--- OUTSIDE RECORDS SUMMARY | 2024-08-31 07:56 | XMS_ITS | Encounter Summary ---
Author Organization [facility] Address 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
--- OUTSIDE RECORDS SUMMARY | 2024-08-31 07:56 | XMS_ITS | Clinical Summary ---
Author Organization [facility] Address [facility] [place] [address] Care Team Providers Care Roller Man Name Role Phone Arabella Thompson MD Primary Care Provider [phone] Allergies Active Allergy Reactions Criticality Noted Date Comments Morphine Nausea and Vomiting,Other (see comment) Low 02/13/2009 Patient states he experiences cold sweats with morphine Has had since then and has been ok Tape Rash Low 10/27/2016 Medications albuterol sulfate HFA 108 (90 Base) MCG/ACT inhaler INHALE 2 PUFFS EVERY 4 HOURS BY INHALATION ROUTE NEEDED 3 Active ELIQUIS 5 MG tablet 3 Active ASPIRIN LOW DOSE 81 MG chewable tablet Chew 1 tablet (81 mg total) by mouth daily. 3 Active cephALEXin (KEFLEX) 500 MG capsule take 1 capsule by mouth twice a day for 7 days 3 Active cetirizine (ZYRTEC) 10 MG tablet Take 1 tablet (10 mg total) by mouth daily. 3 Active fluticasone propionate (FLONASE) 50 MCG/ACT nasal spray 1 spray by Each Nostril route daily. Active Multiple Vitamin (MULTI-VITAMIN) tablet Take 1 tablet by mouth daily. Active [place]-3 Fatty Acids (OMEGA-3 FISH OIL) 1200 MG Cap Take 1 capsule by mouth daily. Active rosuvastatin (CRESTOR) 5 MG tablet 3 Active tamsulosin (FLOMAX) 0.4 MG Cap Take 1 capsule (0.4 mg total) by mouth daily. 3 Active traMADol (ULTRAM) 50 MG tablet TAKE 1 TABLET BY MOUTH EVERY 6 HOURS NEEDED PAIN 3 Active traZODone (DESYREL) 50 MG tablet 3 Active amoxicillin-cla vulanate (AUGMENTIN) 875-125 MG tablet Take 1 tablet (875 mg total) by mouth every 12 (twelve) hours. for 7 days 3 Active Probiotic Product (PROBIOTIC DAILY) Cap Take by mouth. Acti ve tobramycin-dexa methasone (TOBRADEX) ophthalmic solution INSTILL ONE GTT INTO OU QID Active Active Problems Problem Noted Date Diagnosed Date Rotator cuff arthropathy of left shoulder 2022 Family History Medical History Relation Comments COPD Brother 1 Diabetes Brother 2 Heart Disease Father Kidney Disease Father Stroke Father Heart Disease Mother Cancer Paternal Grandmother Relation Status Comments Brother 1 Brother 2 Father Mother Paternal Grandmother Social History Tobacco Use Types Packs/Day Years Used Date Smoking Tobacco: Former Cigarettes 1 25 0 05/11/1974 - 05/11/1999 Smokeless Tobacco: Never Tobacco Cessation:Counseling Given: No Alcohol Use Standard Drinks/Week Comments Never 0 (1 standard drink = 0.6 oz pur e alcohol) Sex and Gender Information Value Date Recorded Sex Assigned at Not on file Legal Sex Male 11:24 PM STAFF DEVELOPMENT COORDINATOR RN Gender Identity Not on file Sexual Orientation Not on file Last Filed Vital Signs Vital Sign Reading Time Taken Comments Blood Pressure 137/87 02/24/2023 9:11 AM CDT Pulse 62 02/24/2023 9:11 AM CDT Temperature 37.1 C (98.8 F) 02/24/2023 9:11 AM CDT Respiratory Rate - - Oxygen Saturation - - Inhaled Oxygen Concentration - - Weight 96.5 kg (212 lb 12.8 oz) 02/24/2023 9:11 AM CDT Height 175.3 cm (5' 9 ) 02/24/2023 9:11 AM CDT Patient reported Body Mass Index 31.43 02/24/2023 9:11 AM CDT Plan of Treatment Health Maintenance Due Date Last Done Comments Colorectal Cancer Screening Colonoscopy (10 Years) 1951 Hepatitis C 1969 Zoster Vaccines (1 of 2) 2001 Annual Medicare Wellness Visit 2016 Pneumococcal Vaccine: 50+ Years (2 of 2 - PCV) 11/24/2018 11/24/2017 COVID-19 Vaccine (4 - 2023-2 5 season) 2024 05/07/2021, 08/20/2020, 07/26/2020 PHQ-2 (Physician [place]) 05/11/2024 RSV Immunization or 60+ Years (1 - 1-dose 75+ series) 2026 DTaP, Tdap and Td Vaccines ( 3 - Td or Tdap) 09/23/2027 09/22/2017, 09/19/2017 Meningococcal B Vaccine Aged Out No l onger eligible based on patient's age to complete this topic Meningococcal Vaccine Aged Out No rachna ewelina eligible based on patient's age to complete this topic RSV Immunizations Under 20 Months Aged Out No longer eligible b ased on patient's age to complete this topic Insurance [facility] MEDICARE Care Teams Roller Man Relationship Specialty Start Date End Date Arabella Thompson MD [address] [place] [address] [place] [address] PCP - General FAMILY PRACTICE 01/30/23
--- OUTSIDE RECORDS SUMMARY | 2024-08-31 07:56 | XMS_ITS | Encounter Summary ---
Author Organization [facility] Address [address] [place] [address] Phone Care Team Providers Care Currency Machine Operator Name Role Phone Arabella Thompson MD Primary Care Provider + Bailey Reynolds NP Primary Care Provider [phone] No, Physician Primary Care Provider [phone] Encounter Details Date Type Department Care Team (Latest Contact Info) Description 07/16/2017 Orders Only [facility] CONVERSION Scanning, Provider Social History Tobacco Use Types Packs/Day Years Used Date Smoking Tobacco: Former Sex and Gender Information Value Date Recorded Sex Assigned at Not on file Legal Sex Male 12:31 AM SEWER AND DRAIN TECHNICIAN Gender Identity Not on file Sexual Orientation Not on file documented as of this encounter Plan of Treatment Not on file documented as of this encounter Procedures Procedure Name Priority Date/Time Associated Diagnosis Comments VASCULAR LABORATORY REPORT 07/16/2017 12:55 PM SEWER AND DRAIN TECHNICIAN documented in this encounter Results * VASCULAR LABORATORY REPORT (07/16/2017 12:55 PM SEWER AND DRAIN TECHNICIAN) Anatomical Region Laterality Modality Ultrasound us Provider Scanning CV VASCULAR PROCEDURES Edited Result - Final documented in this encounter Visit Diagnoses Not on filedocumented in this encounter Additional Health Concerns Infection Onset Date Last Indicated Resolved Time MDR gram neg/ESBL Comment:Patients who received care at a healthcare facility outside of the [place] will be placed in Contact Precautions until infection or colonization with specific highly resistant bacteria can be ruled out. Infection Prevention will arrange screening. Please contact Infection Prevention. 08/31/2022 08/31/2022 COVID: Suspected 10/11/2022 10/11/2022 10/11/2022 9:10 AM CDT documented as of this encounter Care Teams Currency Machine Operator Relationship Specialty Start Date End Date Arabella Thompson MD PCP - General 07/14/17 08/30/22 Bailey Reynolds NP PCP - General Internal Medicine 08/31/22 12/18/23 No, Physician PCP - General 12/19/23 documented as of this encounter
--- OUTSIDE RECORDS SUMMARY | 2024-08-31 07:56 | XMS_ITS ---
Author Organization [facility] Address [address] [address] Care Team Providers Care Photovoltaic Fabrication Technician Name Role Phone Laquita Jo Primary Care Provider George Major Unavailable [phone] REASON FOR VISIT Inj Encounters Encounter Location Date Provider Diagnosis [facility] [address] [facility] [address] [place] [address] 02/15/2024 George Benavides PLAN OF TREATMENT No Information
--- OUTSIDE RECORDS SUMMARY | 2024-08-31 07:56 | XMS_ITS | Encounter Summary ---
Author Organization [facility] Address 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
--- NOTE | 2024-08-31 07:58 | ECG_ITS ---
Test Date: 2024-08-31 08:20:16 Measurements Intervals [place] Rate: 58 P: 26 SC: 169 QRS: 41 QRSD: 94 T: 32 QT: 423 QTc: 418 Interpretive Statements SINUS BRADYCARDIA WITH OCCASIONAL SUPRAVENTRICULAR PREMATURE COMPLEXES LOW QRS VOLTAGE IN LIMB LEADS PATTERN CONSISTENT WITH PULMONARY DISEASE BASELINE ARTIFACT- I, II, III, AVR, AVL, AVF, V1 BORDERLINE ECG No previous ECG available for comparison Electronically Signed On 08-31-2024 08:43:52 CDT by Kentrell Johnson D.O.
[2024-08-31 08:42] LABS: Basophils Absolute Auto 0.1 K/mm3 (0.0-0.1); Basophils Percent Auto 1.8 % (0.2-1.2); Eosinophils Absolute Auto 0.3 K/mm3 (0-0.3); Eosinophils Percent Auto 5.4 % (0-4.4); Hematocrit 41.5 % (42.0-52.0); Hemoglobin 13.5 g/dL (14.0-18.0); Immature Granulocyte Absolute 0.02 K/mm3 (0.00-0.031); Immature Granulocyte Percent A 0.4 % (0-0.5); Lymphocytes Absolute Auto 1.21 K/mm3 (0.9-3.2); Lymphocytes Percent Auto 24.4 % (18.3-44.2); Mean Corpuscular HGB Conc 32.5 g/dl (32-36); Mean Corpuscular Hemoglobin 30.7 pg (26-34); Mean Corpuscular Volume 94.3 fl (80-100); Mean Platelet Volume 8.8 fl (7.4-10.4); Monocytes Absolute Auto 0.6 K/mm3 (0.1-0.6); Monocytes Percent Auto 11.7 % (2.6-8.5); Neutrophils Absolute Auto 2.8 K/mm3 (1.3-6.7); Neutrophils Percent Auto 56.3 % (45.5-73.1); Platelet Count Result 238 k/mm3 (150-375)
[2024-08-31 08:51] LABS: Anion Gap 8 mmol/L (4-12); Blood Urea Nitrogen 15 mg/dL (9-20); Calcium 8.9 mg/dL (8.4-10.2); Carbon Dioxide 28 mmol/L (22-30); Chloride 104 mmol/L (98-107); Estimated Glomerular Filt Rate > 60; Glucose 104 mg/dL (65-110); Potassium 3.9 mmol/L (3.4-5.0); Sodium 140 mmol/L (137-145)
[2024-08-31 08:53] LABS: INR 1.2; Prothrombin Time 15.8 Seconds (11.1-14.7)
[2024-08-31 08:54] LABS: Partial Thromboplastin Time 31.6 Seconds (22.3-36.8)
== END 2024-08-31 07:45 | disposition home or self-care (01) ==
PROVIDERS: Visit Provider Urology
DX: C67.9 Malignant neoplasm of bladder, unspecified (principal); E78.5 Hyperlipidemia, unspecified; R94.31 Abnormal electrocardiogram [ECG] [EKG]
CPT/HCPCS: 36415; 80048; 85025; 85610; 85730; 93005

== ENCOUNTER 2024-09-06 00:59 | Day surgery (SDC) | payer MEDICARE, SELFPAY ==
[2024-08-29 15:54] VITALS: BMI 29.2
--- NOTE | 2024-08-29 16:02 | PC.NURSE ---
Report to the Outpatient Waiting Room, entrance under the green pavilion located off [facility], at time __0745am on date _09/06/24 . Planned Procedure Time: _0945am .? Time changes happen often and if your time is changed the preop area will call you the afternoon before. - You and your visitor will be asked to self-screen and do not enter if you have any COVID symptoms. Please call surgeon if you need to reschedule. - A mask is optional within the hospital at this time. Patients may have clear liquids (water, carbonated beverages, clear teas, apple juice) until 3 hours prior to surgery with a maximum of 20 ounces. - No food from midnight until time of surgery and no smoking, or chewing tobacco (or any form of nicotine). No chewing gum, candy or mints. (0645am) Take only the following medications with a SIP of water on the morning of surgery: Albuteral if needed DO NOT STOP ANY OF YOUR OTHER PRESCRIPTION MEDICATIONS PRIOR TO SURGERY EXCEPT THE FOLLOWING Hold all vitamins, aspirin or aspirin containing products , NSAIDS and supplements for [address] Garcia Medications to discontinue per physician Eliquis per Dr Erickson, Bridge with Lovenox as indicated, pt awaiting to hear from Dre office on this Date to take last dose per Dr Erickson office Please no make-up, nail bengali, hairspray, perfume, deodorant, or body powder the day of surgery.? No jewelry (including any body piercings) or valuables the day of surgery, leave them at home.? Please take a shower or bath the night before, or the morning of, surgery with an antibacterial soap.? Wear comfortable, loose fitting clothing.? - Jewelry must be removed prior to entering the operating room.? Rings and piercings that are not removed may be cut off. - The hospital will not accept responsibility for valuables.? - Please leave all valuables, including medications, at home the day of surgery. If you are going home after surgery, a licensed regional refrigerated cdl truck driver must drive you home.? - NO public transportation without another adult if you receive anesthesia. - We recommend that an adult stay with you for 24 hours following discharge. - We also recommend that you do not drive, make important decision, drink alcoholic beverages, or take any drugs that were not prescribed by your health care provider for at least 24 hours after your discharge time. Follow any additional instructions given to you from your surgeon. Telephone instructions given to _Patient and asked if any additional questions and then verbalized understanding. Patient advised to call surgeon office or pre surgery nurse liaison [phone] if any additional questions.
[2024-09-06] VITALS (13 sets, daily range): BP systolic 94–152; BP diastolic 59–105; PULSE 44–79; RESP 12–20; TEMP 36.2–36.3; O2SAT 92–100; BMI 29.1
--- OUTSIDE RECORDS SUMMARY | 2024-09-06 01:03 | XMS_ITS | Clinical Summary ---
Author Organization [facility] Address [address] [place] [address] Care Team Providers Care Knowledge Analyst Name Role Phone Bailey Reynolds APRN-IGNITION EXPERT Primary Care Provider Source Comments [facility],non-owned Affiliates and Associated Physician Practices is amultiple site organization consisting of ambulatory clinics and hospital sitesin [place], [place], [place] and [place]. This disclosure is being madepursuant to the Care Everywhere program and may not contain all information available regarding this patient. Last updated 18.[facility] Allergies Active Allergy Reactions Criticality Noted Date [...] 1 tablet by mouth once daily Active [place]-3 Fatty Acids (FISH OIL PO) Take 1 [...] CDT Respiratory Rate 18 05/27/2019 8:28 AM GLASS RIBBON MACHINE OPERATOR ASSISTANT Oxygen Saturation 90% 05/27/2019 8:28 AM GLASS RIBBON MACHINE OPERATOR ASSISTANT Inhaled Oxygen Concentration - - Weight 91.2 [...] this topic Medical Devices Implanted Type Area Suture Polisher Device Identifier Shelf Expiration Date Model / Serial / Lot Kit Acc Ams 700 Penl Impl Implanted:Qty : 1 on 01/26/2017 by Chaka Fatima MD at [facility] 12/03/2021 [id number] / / [id number] Pros Penl Ams 700cx Ms Supervisor Cartography 18cm Implanted:Qty : 1 on 01/26/2017 by Chaka Fatima MD at [facility] 09/17/2018 [id number] / / [id number] Pros Penl Ams 700 Ms Supervisor Cartography Precnct Infl Implanted:Qty : 1 on 01/26/2017 by Chaka Fatima MD at [facility] 12/26/2018 [id number] / / [id number] Cmnt Bone Djo Srg Cblt 40gm Hvisc Strl Implanted:Qty : 2 on 05/25/2019 by Joey Lacy MD at [facility] Left: Knee [employer] 06/02/2020 [id number] / / [id number] Cmpnt Fem Kn Lt Cr Cmnt Prm Vngrd Intlk Implanted:Qty : 1 on 05/25/2019 by Joey Lacy MD at [facility] Left: Knee [employer] 02/26/2029 [id number] / / [id number] Tray Tib 79mm Kn Cocr I Beam Implanted:Qty : 1 on 05/25/2019 by Joey Lacy MD at [facility] Left: Knee [employer] 03/25/2029 [id number] / / [id number] Cmpnt Ptlr 31mm 1 Pg Wire Ascnt Arcm Kn Implanted:Qty : 1 on 05/25/2019 by Joey Lacy MD at [facility] Left: Knee [employer] 03/22/2024 [id number] / / [id number] [id number] Vngrd Arcm Kn Ant Stab Implanted:Qty : 1 on 05/25/2019 by Joey Lacy MD at [facility] Left: Knee [employer] 04/07/2023 [id number] / / [id number] Procedures Procedure Name Priority Date/Time Associated Diagnosis Comments COMPREHENSIVE METABOLIC PANEL STAT 05/02/2019 7:53 AM GLASS RIBBON MACHINE OPERATOR ASSISTANT Preoperative examination from Last 3 Months or Most Recently Relevant to Health Maintenance Results * COMPREHENSIVE METABOLIC PANEL (05/02/2019 7:53 AM GLASS RIBBON MACHINE OPERATOR ASSISTANT) [facility] Glucose 105 70 - 105 mg/dL 05/02/2019 8:23 AM GLASS RIBBON MACHINE OPERATOR ASSISTANT [facility] Sodium 140 136 - 145 mmol/L 05/02/2019 8:23 AM GLASS RIBBON MACHINE OPERATOR ASSISTANT [facility] Potassium 4.2 3.5 - 4.7 mmol/L 05/02/2019 8:23 AM GLASS RIBBON MACHINE OPERATOR ASSISTANT [facility] Chloride 106 98 - 107 mmol/L 05/02/2019 8:23 AM GLASS RIBBON MACHINE OPERATOR ASSISTANT [facility] CO2 26 23 - 31 mmol/L 05/02/2019 8:23 AM [facility] Calcium 9.2 8.4 - 10.4 mg/dL 05/02/2019 8:23 AM [facility] Anion Gap 8 8 - 16 mmol/L 05/02/2019 8:23 AM [facility] BUN 16 8.4 - 25.7 mg/dL 05/02/2019 8:23 AM [facility] Creatinine 0.97 0.72 - 1.25 mg/dL 05/02/2019 8:23 AM [facility] Alkaline Phosphatase 73 40 - 150 U/L 05/02/2019 8:23 AM [facility] ALT 22 0 - 61 U/L 05/02/2019 8:23 AM [facility] AST 19 5 - 34 U/L 05/02/2019 8:23 AM [facility] Protein Total 7.0 6.4 - 8.3 gm/dL 05/02/2019 8:23 AM [facility] Albumin 4.1 3.2 - 4.6 gm/dL 05/02/2019 8:23 AM [facility] Bilirubin Total 0.3 0.2 - 1.2 mg/dL 05/02/2019 8:23 AM [facility] eGFR by MDRD >60 >60 mL/min/1.7 3m2 05/02/2019 8:23 AM [facility] eGFR by MDRD >60 >60 mL/min/1.7 3m2 05/02/2019 8:23 AM [facility] Blood BLOOD SPECIMEN / Unknown Venipuncture / Unknown 05/02/2019 7:53 AM GLASS RIBBON MACHINE OPERATOR ASSISTANT 05/02/2019 8:03 AM GLASS RIBBON MACHINE OPERATOR ASSISTANT us Mee Malagon LICENSED ELECTRICIAN-IGNITION EXPERT LAB - CHEMISTRY OR DERABLES Final Result [facility] [address] [place] [address] from Last 3 Months or Most Recently Relevant to Health Maintenance Insurance SELF PAY NO INSURANCE Member Subscriber Plan / Payer (Ef fective for All Dates) Name:Chidi Marko [place] Member ID:Not on file Relation to Subscriber:Not on file Name:MARKO MURILLO Subscriber ID:Not on file (Home) Address: [address] [place] [address] Payer ID:Not on file Group ID:Not on file Type:Self Pay Address: [facility] MANAGED MEDICARE ADV MEDICARE [facility] MANAGED MEDICARE ADV * Guarantor: MARKO MURILLO Account Type Relation to Patient Date of Phone Billing Address Personal/Family [address] [phone] SELF PAY NO INSURANCE Member Subscriber Plan / Payer (Ef fective for All Dates) Name:ChidiMarko salazar Member ID:Not on file Relation to Subscriber:Not on file Name:SANTIAGO MURILLOY Subscriber ID:Not on file Address: [address] [address] Payer ID:Not on file Group ID:Not on file Type:Self Pay Address: [facility] MANAGED MEDICARE ADV * Guarantor: MARKO MURILLO Account Type Relation to Patient Date of Phone Billing Address Personal/Family [address] [phone] SELF PAY NO INSURANCE Member Subscriber Plan / Payer (Ef fective for All Dates) Name:Marko Murillo Member ID:Not on file Relation to Subscriber:Not on file Name:CHIDIMARKO Subscriber ID:Not on file Address: [address] [address] Payer ID:Not on file Group ID:Not on file Type:Self Pay Address: [facility] MANAGED MEDICARE ADV * Guarantor: MARKO MURILLO Type Relation to Patient Date of Phone Billing Address Personal/Family [address] [place] [address] SELF PAY NO INSURANCE Member Subscriber Plan / Payer (Ef fective for All Dates) Name:ChidiMarko Member ID:Not on file Relation to Subscriber:Not on file Name:SANTIAGO MURILLOY Subscriber ID:Not on file Address: [address] [place] [address] Payer ID:Not on file Group ID:Not on file Type:Self Pay Address: [facility] MANAGED MEDICARE ADV Advance Directives * Full Code (Latest Code Status on File) Date Activated Date Inactivated Comments 05/25/2019 12:55 PM 05/27/2019 12:36 PM Care Teams Knowledge Analyst Relationship Specialty Start Date End Date Bailey Reynolds, LICENSED ELECTRICIAN-IGNITION EXPERT [address] [place] [phone] PCP - General 11/21/21
--- OUTSIDE RECORDS SUMMARY | 2024-09-06 01:03 | XMS_ITS | Encounter Summary ---
Author Organization [facility] Address [address] [place] [address] Care Team Providers Care Chemical Equipment Controller Name Role Phone Arabella Thompson MD Primary Care Provider + Encounter Details Date Type Department Care Team (Late st Contact Info) Description 10/15/[address] [facility] [address] 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
--- OUTSIDE RECORDS SUMMARY | 2024-09-06 01:03 | XMS_ITS | Clinical Summary ---
Author Organization [facility] Address [facility] [place] [address] Care Team Providers Care Passport Support Manager Name Role Phone No, Physician Primary Care Provider [phone] Allergies Active Allergy Reactions Criticality Noted Date [...] daily as needed for allergies Active omega 4-ghp-ixm-fish oil 1,200 (144-216) mg capsule Take 1 [...] often do you attend chur ch or jew services? Never 10/13/2022 Do you belong to any clubs o r organizations such as quaker groups, unions, fraternal or athletic groups, or [...] place to sleep or slept in a alf (including now)? No 10/13/2022 Personal Safety Answer Date Recorded Have you ever been in or are you currently in a harmful physical or emotional relationship or is someone making you feel afraid or unsafe? Denies 12/19/2023 Sex and Gender Information Value Date Recorded Sex Assigned at Not on file Legal Sex Male 12:31 AM ASSISTANT GOLF COURSE SUPERINTENDENT Gender Identity Not on file Sexual Orientation [...] Franklin Brothers M.D. AG T: Report ID: [id number] Reading Location: [id number] Procedure Note Franklin Brothers MD - 10/24/2022 [...] Franklin Brothers M.D. AG T: Report ID: [id number] Reading Location: [id number] us Brisa OCHOA IMG CT PROCEDURES Final Resul t * Occult blood, fecal non neoplasm screening (02/11/2017 10:49 PM CDT) Stool Occult Blood POSITIVE NEGATIVE 02/11/2017 10:4 9 PM CDT 02/11/2017 11:12 PM CDT Narrative [facility] HISTORICAL RESULTS - 02/11/2017 11:27 PM CDT Collected By mr Aylin OCHOA LAB BODY FLUIDS AND STOOL S ORDERABLES Final Result [facility] HISTORICAL RESULTS from Last 3 Months or [...] Please contact Infection Prevention. 08/31/2022 08/31/2022 Insurance [facility] MEDICARE ADVANTAGE UHC MEDICARE ADVANTAGE UHC MEDICARE ADVANTAGE Advance Directives For more information, please contact: [phone] Documents on File Type Date Recorded Patient Recycling Technician Expl anation ADVANCE DIRECTIVE 02/15/2017 12:00 AM KARINA R OF DOCUMENT CONTROL COORDINATOR FINANCIAL/MEDICAL * Full Code (Latest Code Status on File) Date Activated Date Inactivated Comments 10/11/2022 1:57 PM 10/13/2022 6:26 PM Care Teams Passport Support Manager Relationship Specialty Start Date End Date No, Physician PCP - General 12/19/23
--- OUTSIDE RECORDS SUMMARY | 2024-09-06 01:03 | XMS_ITS | Clinical Summary ---
Author Organization [facility] Address [facility] [place] [address] Care Team Providers Care Card Checker Name Role Phone Arabella Thompson MD Primary Care Provider [phone] Allergies Active Allergy Reactions Criticality Noted Date [...] Take 1 tablet by mouth daily. Active [place]-3 Fatty Acids (OMEGA-3 FISH OIL) 1200 MG [...] on file Legal Sex Male 11:24 PM ENGINE ASSEMBLY SUPERVISOR Gender Identity Not on file Sexual [...] season) 2024 05/07/2021, 08/20/2020, 07/26/2020 PHQ-2 (Physician [place]) 05/11/2024 RSV Immunization or 60+ Years (1 [...] age to complete this topic Insurance MED [facility] MEDICARE Care Teams Card Checker Relationship Specialty Start Date End Date Arabella Thompson MD [address] [place] [address] [place] [address] PCP - General FAMILY PRACTICE 01/30/23
--- OUTSIDE RECORDS SUMMARY | 2024-09-06 01:03 | XMS_ITS | CONTINUITY OF CARE DOCUMENT ---
Author Name andrewgraykiley curry Address Unknown Organization [facility] Address [address] [place] [address] Phone [phone] Care Team Providers Care Currency Machine Operator Name Role Phone Jacek CARVALHO, Aimee Unavailable FINLEY DIGITAL ADVERTISING ANALYST, DELORA Unavailable [phone] FINLEY DIGITAL ADVERTISING ANALYST, DELORA Unavailable [phone] PROBLEMS Condition Status Date Provider Notes Dyspnea on exertion active Angel Ahaneudyzai Family hx of heart disease, CVA active Angel Ahmedzai Cough active Angel Ahmedzai Former smoker active Angel Ahmedzai ENCOUNTERS Date Type Provider Location Encounter Diag nosis - In-person encounter Office Visit Aimee Read MD [facility] Family hx of heart disease, CVACoughFormer [...] Susanne Beard oxygen saturation, oximetry 95 % uSsanne Beard blood pressure, cuff size regular Sh [...] Payer name Policy type / Coverage type Fishtail red alliance party ID [employer] [facility] ADVANTAGE PLAN PPO ([facility]) Medicare [id number] ADVANCE DIRECTIVES Name Date DISCUSSED - NO DECISION MADE TREATMENT PLAN Date Name Performer [id number],S, Angel Morales i [id number],W, Angel Morales i Cardiology Angel Mayorga Cardiology Angel Mayorga Date Name Stress Exercise Card iolite Complete Echo CXR- PA/Lat
--- OUTSIDE RECORDS SUMMARY | 2024-09-06 01:03 | XMS_ITS | Referral Summary ---
Author Organization [facility] Address [address] [place] [address] Care Team Providers Care Duplicating Machine Servicer Name Role Phone No, Physician Primary Care Provider [phone] Allergies Active Allergy Reactions Criticality Noted Date [...] daily as needed for allergies Active omega 2-yhi-zhy-fish oil 1,200 (144-216) mg capsule Take 1 [...] How often do you attend chur or spiritism services? Never 10/13/2022 Do you belong to any clubs o r organizations such as christian groups, unions, fraternal or athletic groups, or [...] on file Legal Sex Male 12:31 AM INSURANCE CLAIMS ASSISTANT Gender Identity Not on file Sexual Orientation [...] Franklin Brothers M.D. AG T: Report ID: [id number] Reading Location: [id number] Procedure Note Franklin Brothers MD - 10/24/2022 [...] Franklin Brothers M.D. AG T: Report ID: [id number] Reading Location: [place] [address] PROCEDURES Final Resul t * Occult blood, fecal non neoplasm screening (02/11/2017 10:49 PM CDT) Stool Occult Blood POSITIVE NEGATIVE 02/11/2017 10:4 9 PM CDT 02/11/2017 11:12 PM CDT Narrative [facility] HISTORICAL RESULTS - 02/11/2017 11:27 PM CDT Collected By mr Aylin OCHOA LAB BODY FLUIDS AND STOOL S ORDERABLES Final Result [facility] H[facility]OR[facility] RESULTS from Last 3 Months or [...] Please contact Infection Prevention. 08/31/2022 08/31/2022 Insurance [facility] MEDICARE ADVANTAGE Advance Directives For more information, please contact: [phone] Documents on File Type Date Recorded Patient Bookmobile Driver Expl anation ADVANCE DIRECTIVE 02/15/2017 12:00 AM KARINA R OF LOUNGE CAR ATTENDANT FINANCIAL/MEDICAL * Full Code (Latest Code Status on File) Date Activated Date Inactivated Comments 10/11/2022 1:57 PM 10/13/2022 6:26 PM Care Teams Duplicating Machine Servicer Relationship Specialty Start Date End Date No, Physician PCP - General 12/19/23
--- OUTSIDE RECORDS SUMMARY | 2024-09-06 01:03 | XMS_ITS | Encounter Summary ---
Author Organization [facility] Address [address] [place] [address] Care Team Providers Care Vault Manager Name Role Phone Arabella Thompson MD Primary Care Provider + Encounter Details Date Type Department Care Team (Late st Contact Info) Description 08/21/1998 Outpatient Historical [facility] [address] [place] [address] Reyes Hernandes (Two) Social History Tobacco Use Types Packs/Day Years Used Date Smoking Tobacco: Never Assessed Sex and Gender Information Value Date Recorded Sex Assigned at Not on file Legal Sex Male 4:22 AM COLLECTIONS OFFICER Gender Identity Not on file Sexual Orientation Not on file documented as of this encounter Plan of Treatment Not on file documented as of this encounter Visit Diagnoses Not on filedocumented in this encounter Care Teams Vault Manager Relationship Specialty Start Date End Date Arabella Thompson MD [address] [place] [address] [place] [phone] PCP - General Family Practice 12/30/17 documented as of this encounter
--- OUTSIDE RECORDS SUMMARY | 2024-09-06 01:03 | XMS_ITS | Encounter Summary ---
Author Organization [facility] Address [address] [place] [address] Care Team Providers Care Screedman/Laborer Name Role Phone Arabella Thompson MD Primary Care Provider + Encounter Details Date Type Department Care Team (Late st Contact Info) Description 06/18/2000 Outpatient Historical [facility] [address] [place] [address] Reyes Hernandes (Two) Social History Tobacco Use Types Packs/Day Years Used Date Smoking Tobacco: Never Assessed Sex and Gender Information Value Date Recorded Sex Assigned at Not on file Legal Sex Male 4:22 AM TECHNICAL TRANSLATOR Gender Identity Not on file Sexual Orientation Not on file documented as of this encounter Plan of Treatment Not on file documented as of this encounter Visit Diagnoses Not on filedocumented in this encounter Care Teams Screedman/Laborer Relationship Specialty Start Date End Date Arabella Thompson MD [address] [place] [address] [place] [phone] PCP - General Family Practice 12/30/17 documented as of this encounter
--- OUTSIDE RECORDS SUMMARY | 2024-09-06 01:03 | XMS_ITS | Encounter Summary ---
Author Organization [facility] Address [address] [place] [address] Care Team Providers Care Melter Clerk Name Role Phone Arabella Thompson MD Primary Care Provider + Encounter Details Date Type Department Care Team (Latest Contact Info) Description 01/28/2006 Outpatient Historical [place] [address] [place] [address] Malfunc Dev/Graft NEC (Primary Dx) Social History Tobacco Use Types Packs/Day Years Used Date Smoking Tobacco: Never Assessed Sex and Gender Information Value Date Recorded Sex Assigned at Not on file Legal Sex Male 4:22 AM WAITER/WAITRESS TAKE OUT Gender Identity Not on file Sexual Orientation [...] Primary documented in this encounter Care Teams Melter Clerk Relationship Specialty Start Date End Date Arabella Thompson MD [address] [place] [address] [place] [phone] PCP - General Family Practice 12/30/17 documented as of this encounter
--- OUTSIDE RECORDS SUMMARY | 2024-09-06 01:03 | XMS_ITS | Encounter Summary ---
Author Organization [facility] Address [address] [place] [address] Care Team Providers Care Labor Crew Supervisor Name Role Phone Rodolfo Bailey Nova LANGUAGE ARTS TEACHER-OUTDOOR FITNESS TRAINER Primary Care Provider Encounter Details Date Type Department Care Team (Late st Contact Info) Description 11/26/2023 Lab Requisition [facility] - DermPath Lab [address] [place] [id number] Marko Reed MD [address] [place] [address] Social History Tobacco Use Types Packs/Day Years [...] AM CDT) Case Report Dermatopathology Report Case: [id number] Authorizing Provider: Marko Reed MD Collected: 11/25/2023 03:33 AM Ordering Location: [facility] - Received: 11/26/2023 09:24 AM DermPath Lab Pathologist: Roro Hernaneds MD Specimen: Skin, right lower eyelid 4 [...] characteristic determined by the Dermatopathology Laboratory at [facility], directed by Dr. Danny Hogan. These tests need not be, and therefore are not, approved by the [place] Food and Drug Administration. The tests are used for clinical purposes. Billing Codes Specimen Charges Stain Charges 91640 1 4 2:09 PM CDT DERMATOPATHOLOGY LABORATORY Embedded Images 4 2:09 PM CDT DERMATOPATHOLOGY LABORATORY Pathology/Cytolo gy TISSUE SPECIMEN FROM SKIN / Unknown 11/25/2023 3:33 AM CDT 11/26/2023 9:24 AM CDT Marko Reed MD LAB - PATHOLOGY/CYTOLOGY ORDERAB LES Final Result DERMATOPATHOLOGY LABORATORY [facility] Department of Dermatology [address], [address] [phone] documented in this encounter Visit Diagnoses Not on filedocumented in this encounter Care Teams Labor Crew Supervisor Relationship Specialty Start Date End Date Bailey Reynolds, LANGUAGE ARTS TEACHER-OUTDOOR FITNESS TRAINER [address] [place] [address] [place] [phone] PCP - General 11/21/21 documented as of this encounter
--- OUTSIDE RECORDS SUMMARY | 2024-09-06 01:03 | XMS_ITS | Encounter Summary ---
Author Organization [facility] Address [address] [place] [address] Care Team Providers Care Multiple Spindle Screw Machine Operator Name Role Phone Arabella Thompson MD Primary Care Provider + Encounter Details Date Type Department Care Team (Late st Contact Info) Description 09/20/1998 Outpatient Historical [facility] [address] [place] [address] Reyes Hernandes (Two) Social History Tobacco Use Types Packs/Day Years Used Date Smoking Tobacco: Never Assessed Sex and Gender Information Value Date Recorded Sex Assigned at Not on file Legal Sex Male 4:22 AM METALLURGICAL LABORATORY ASSISTANT Gender Identity Not on file Sexual Orientation Not on file documented as of this encounter Plan of Treatment Not on file documented as of this encounter Visit Diagnoses Not on filedocumented in this encounter Care Teams Multiple Spindle Screw Machine Operator Relationship Specialty Start Date End Date Arabella Thompson MD [address] [place] [address] [place] [phone] PCP - General Family Practice 12/30/17 documented as of this encounter
--- OUTSIDE RECORDS SUMMARY | 2024-09-06 01:03 | XMS_ITS | Encounter Summary ---
Author Organization [facility] Address [address] [place] [address] Care Team Providers Care Vp Corporate Partnerships Name Role Phone Arabella Thompson MD Primary Care Provider + Encounter Details Date Type Department Care Team (Late st Contact Info) Description 02/16/2004 Outpatient Historical [facility] [address] [place] [address] Reyes Hernandes (Two) Social History Tobacco Use Types Packs/Day Years Used Date Smoking Tobacco: Never Assessed Sex and Gender Information Value Date Recorded Sex Assigned at Not on file Legal Sex Male 4:22 AM WEIGHT REDUCING TECHNICIAN Gender Identity Not on file Sexual Orientation Not on file documented as of this encounter Plan of Treatment Not on file documented as of this encounter Visit Diagnoses Not on filedocumented in this encounter Care Teams Vp Corporate Partnerships Relationship Specialty Start Date End Date Arabella Thompson MD [address] [place] [address] [place] [phone] PCP - General Family Practice 12/30/17 documented as of this encounter
--- OUTSIDE RECORDS SUMMARY | 2024-09-06 01:03 | XMS_ITS | Encounter Summary ---
Author Organization [facility] Address [address] [place] [address] Care Team Providers Care Care Information Associate Name Role Phone Arabella Thompson MD Primary Care Provider + Encounter Details Date Type Department Care Team (Late st Contact Info) Description 08/27/2000 Outpatient Historical [facility] [address] [place] [address] Reyes Hernandes (Two) Social History Tobacco Use Types Packs/Day Years Used Date Smoking Tobacco: Never Assessed Sex and Gender Information Value Date Recorded Sex Assigned at Not on file Legal Sex Male 4:22 AM TELETYPESETTER MONITOR Gender Identity Not on file Sexual Orientation Not on file documented as of this encounter Plan of Treatment Not on file documented as of this encounter Visit Diagnoses Not on filedocumented in this encounter Care Teams Care Information Associate Relationship Specialty Start Date End Date Arabella Thompson MD [address] [place] [address] [place] [phone] PCP - General Family Practice 12/30/17 documented as of this encounter
--- OUTSIDE RECORDS SUMMARY | 2024-09-06 01:03 | XMS_ITS | Encounter Summary ---
Author Organization [facility] Address [address] [place] [address] Care Team Providers Care Ict Development Manager Name Role Phone Arabella Thompson MD Primary Care Provider + Encounter Details Date Type Department Care Team (Late st Contact Info) Description 08/27/2000 Outpatient Historical [facility] [address] [place] [address] Reyes Hernandes (Two) Social History Tobacco Use Types Packs/Day Years Used Date Smoking Tobacco: Never Assessed Sex and Gender Information Value Date Recorded Sex Assigned at Not on file Legal Sex Male 4:22 AM TRIP MOTOR OPERATOR Gender Identity Not on file Sexual Orientation Not on file documented as of this encounter Plan of Treatment Not on file documented as of this encounter Visit Diagnoses Not on filedocumented in this encounter Care Teams Ict Development Manager Relationship Specialty Start Date End Date Arabella Thompson MD [address] [place] [address] [place] [phone] PCP - General Family Practice 12/30/17 documented as of this encounter
--- OUTSIDE RECORDS SUMMARY | 2024-09-06 01:03 | XMS_ITS | Clinical Summary ---
Author Organization [facility] Address [address] [place] [address] Care Team Providers Care Golf Cart Assembler Name Role Phone Arabella Thompson MD Primary [...] on file Legal Sex Male 4:22 AM DISTRICT PLANT ENGINEER Gender Identity Not on file Sexual Orientation [...] 09/20/19 18 Medical Devices Implanted Type Area Senior Project Manager Device Identifier Shelf Expiration Date Model / Serial / Lot Log [id number] - Penile Implants - 1 - Penile Titan Scrotal 18cm [id number] Implanted:Qty: 1 on 02/21/2009 at [facility] Penile N/A: Penis MENTOR LUCY 12/09/2012 [id number] / / [id number] Titan Assembly Kit Implanted:Qty: 1 on 02/21/2009 at [facility] N/A: Penis 10/09/2013 [id number] / / [id number] [place] [address] Advance Directives For more information, please contact: [phone] * Full Code (Latest Code Status on File) Date Activated Date Inactivated Comments 02/21/2009 11:50 AM 02/21/2009 9:37 PM * Full Code Date Activated Date Inactivated Comments 02/21/2009 9:37 AM 02/21/2009 11:50 AM Care Teams Golf Cart Assembler Relationship Specialty Start Date End Date Arabella Thompson MD [address] [place] [address] [place] [phone] PCP - General Family Practice 12/30/17
--- OUTSIDE RECORDS SUMMARY | 2024-09-06 01:03 | XMS_ITS | Encounter Summary ---
Author Organization [facility] Address [address] [place] [address] Phone Care Team Providers Care Senior Sharepoint Architect Name Role Phone Arabella Thompson MD Primary Care Provider + Bailey Reynolds NP Primary Care Provider [phone] No, Physician Primary Care Provider [phone] Encounter Details Date Type Department Care Team (Latest Contact Info) Description 07/16/2017 Orders Only [facility] CONVERSION Scanning, Provider Social History Tobacco Use Types Packs/Day Years Used Date Smoking Tobacco: Former Sex and Gender Information Value Date Recorded Sex Assigned at Not on file Legal Sex Male 12:31 AM PRODUCT PLANNER Gender Identity Not on file Sexual Orientation Not on file documented as of this encounter Plan of Treatment Not on file documented as of this encounter Procedures Procedure Name Priority Date/Time Associated Diagnosis Comments VASCULAR LABORATORY REPORT 07/16/2017 12:55 PM PRODUCT PLANNER documented in this encounter Results * VASCULAR LABORATORY REPORT (07/16/2017 12:55 PM PRODUCT PLANNER) Anatomical Region Laterality Modality Ultrasound us Provider [...] documented as of this encounter Care Teams Senior Sharepoint Architect Relationship Specialty Start Date End Date Arabella Thompson MD PCP - General 07/14/17 08/30/22 Bailey Reynolds NP PCP - General Internal Medicine 08/31/22 12/18/23 No, Physician PCP - General 12/19/23 documented as of this encounter
--- NOTE | 2024-09-06 07:25 | WPDHPUPDATE1 ---
History and Physical Update Update Date/Time: 09/06/24 07:25 History and Physical has been reviewed, including an updated exam of the patient. There are NO changes in the patient's condition. Risks, benefits, and alternatives have been discussed and questions answered. Patient agrees to proceed with procedure.
[2024-09-06] MEDS: LACTATED RINGERS 1,000 ML 30 ML IV CONT ×2 (07:54→09:30)
--- NOTE | 2024-09-06 07:54 | P.PNAN_ITS ---
Anes - Initial Pre Proc Eval Procedure: Operation Date: 09/06/24 08:15 Proposed Procedures p Cystoscopy Bladder Biopsy with Fulguration, - Albin Erickson MD s Transurethral Resection Bladder Tumor with Gemcitabine Instillation - Albin Erickson MD Date/Time: 09/06/24 07:54 Surgeon: Albin Erickson MD Pre Op Diagnosis: bladder cancer Patient Data Age: 74 Gender: M Height: 1.75 m Weight: 90 kg Allergies Allergy/AdvReac Type Severity Reaction Status Date / Time atorvastatin AdvReac Joint Pain Verified 09/06/24 07:49 Home Medications ?Medication ?Instructions ?Recorded ?Confirmed ?Type apixaban 5 mg tablet (Eliquis) 5 mg PO BID 11/05/22 09/06/24 History multivitamin 1 tablet PO DAILY 11/05/22 08/29/24 History omega-3 360 eb-hnx-hmy-fish oil 1 cap PO DAILY 11/05/22 08/29/24 History 1,200 mg capsule,delayed release trazodone 50 mg tablet 50 mg PO QHS PRN Insomnia 11/05/22 08/29/24 History albuterol sulfate 90 mcg/actuation 2 puff inhalation PRN PRN 11/07/22 08/29/24 History aerosol inhaler Shortness Of Breath tamsulosin 0.4 mg capsule 0.4 mg PO DAILY 11/07/22 08/29/24 History rosuvastatin 5 mg tablet 5 mg PO DAILY 09/04/23 08/29/24 History hydrocodone 5 mg-acetaminophen 325 1 - 2 tablet PO Q6H PRN pain #20 05/05/24 08/29/24 Rx mg tablet tabs Patient hx anesthesia problems: none Family hx anesthesia problems: none Results Review: All pre-operative results and documents have been reviewed as part of the pre- operative evaluation. [facility] Past Medical History Medical History Hiatal hernia Hyperlipidemia DVT (deep venous thrombosis) Obesity Pulmonary embolism 08/2022 KWESI on CPAP Blood clots in biliary tract following procedure Family History Family History Father Heart disease Cerebrovascular accident Mother Heart disease Sibling Hypertension Grandparent Cancer Grandparent Cancer Diabetes mellitus Social History Social History Smoking packs per day: 1 Smoking cigarettes per day: 20.0 Years smoked: 25 Smoking pack-years: 25.00 Smoking status: Former smoker Tobacco type: cigarettes Smoking end date: 05/11/99 Alcohol intake: current Drinks per week: 4 Alcohol use details: 10 per week Substance use: former Lack of Transportation: No Lack of Food: Never True Current Housing: I Have Housing Concerned About Future Housing: No Difficulty Paying Gas/Electric Bills: No Difficulty Paying for Meds: No Currently Unemployed: No Education: High School Diploma/GED Difficulty w/ Childcare or Family Care: No Living arrangements: with family Additional living arrangements comments: Spiritual care concerns: No Anes - Eval Final PreProcedure Day of Procedure 09/06/24 07:54 Patient weight: overweight Lungs: normal air movement Airway: Mallampati scale class II Neurological: alert and oriented Last oral intake: >/= 8 hours ASA classification: III Emergent: no Anesthetic plan: proceed Anesthesia type and monitoring: general LMA and standard monitoring Results Review: All pre-operative results and documents have been reviewed as part of the pre- operative evaluation. KWESI, not compliant currently w CPAP, hyperlipidemia, ex smoker, 20 pack year hx, quit 1999. Informed Consent: The patient's anesthetic plan and its attendant risks and benefits were discussed with the patient/family/POA. Questions were solicited and answers provided to the satisfaction of the patient/family/POA.
[2024-09-06] MEDS: ceFAZolin 2 GM/D5W 50 ML 2 GM/50 ML BAG IVPB (08:08)
--- NOTE | 2024-09-06 08:34 | P.OP_ITS ---
Procedure Note - Detailed Date of Procedure 09/06/24 Pre-op Diagnosis bladder cancer 1 cm lesion left lateral wall near bladder neck at 2-3 o'clock position Post-op Diagnosis Same Procedure Performed Cystoscopy with transurethral resection of bladder tumor, Mena catheter placement Surgeon Albin Erickson MD Anesthesia General Description of Procedure Patient was taken to the operative suite correctly identified. Once anesthesia was obtained was placed in the dorsal lithotomy position and prepped and draped usual sterile fashion. Twenty-four Sammarinese resectoscope was inserted into the bladder. The bladder was inspected sent tired. The only lesion noted was about a 8-9mm lesion located at the 2 to 3 o'clock position near the bladder neck. I resected this area and fulgurated it. Sixteen Sammarinese Mena catheter was then placed with 10 cc in the balloon. Gemcitabine will be given in the recovery room. This completes dictation. Please send a copy of op note to my office. Drains Yes Packing No Pathology Yes Complications No immediate complications Condition Stable Disposition PACU
[2024-09-06] MEDS: LIDOCAINE 2% GEL UROJET 10 ML PKG MUCOUS MEM (08:36)
[2024-09-06] MEDS: SODIUM CHLORIDE 0.9% IV 23.7 ML, GEMCITABINE HCL 1,000 MG BLADDER ×2 (08:52→09:56)
[2024-09-06] MEDS: fentaNYL CITRATE INJ (*CRX) 100 MCG/2 ML VIAL 25 MCG IV PUSH ×4 (09:29→10:05)
--- NOTE | 2024-09-06 10:31 | PM.OP ---
Procedure Note - Brief Procedure Note - Brief Date of procedure: 09/06/24 bladder cancer Procedure performed: Gemcitabine bladder instillation Surgeon: Albin Erickson MD Description of procedure: Patient was in the recovery room after transurethral resection of a very small bladder lesion. Mena catheter was in place. Two vials of gemcitabine was instilled into bladder. Patient tolerated this well. Catheter was left in place as he was positioned and rotated. Catheter will be removed prior to patient's discharge.
== END 2024-09-06 11:15 | disposition home or self-care (01) ==
PROVIDERS: Visit Provider Urology
PROC: 0TBB8ZX Excision of Bladder, Via Natural or Artificial Opening Endoscopic, Diagnostic (ICD-10-PCS; CPT 52204; principal; 2024-09-06 08:15)
PROC: 0TBB8ZZ Excision of Bladder, Via Natural or Artificial Opening Endoscopic (ICD-10-PCS; CPT 52234; 2024-09-06 08:15)
DX: C67.2 Malignant neoplasm of lateral wall of bladder (principal); E78.5 Hyperlipidemia, unspecified; G47.33 Obstructive sleep apnea (adult) (pediatric); R31.0 Gross hematuria; Z79.01 Long term (current) use of anticoagulants; Z79.51 Long term (current) use of inhaled steroids; Z79.891 Long term (current) use of opiate analgesic; Z99.89 Dependence on other enabling machines and devices; Z98.890 Other specified postprocedural states; Z87.891 Personal history of nicotine dependence; Z86.718 Personal history of other venous thrombosis and embolism; Z86.711 Personal history of pulmonary embolism; Z80.1 Family history of malignant neoplasm of trachea, bronchus and lung; Z82.49 Family history of ischemic heart disease and other diseases of the circulatory system
CPT/HCPCS: 52234; 51720; 88305; J0690; J1100; J2003; J2405; J2704; J3010; J7120; J9201